=== PATIENT | female | born 1985 ===

== ENCOUNTER → 2019-05-20 08:24 | Outpatient (CLI) | payer OTHER, SELFPAY ==
[2019-05-20 09:16] LABS: Hemoglobin A1C% w Est Avg Glu 5.6 % (4.0-6.0)
[2019-05-20 09:49] LABS: Alanine Aminotransferase 37 IU/L (9-52); Albumin 4.5 g/dL (3.5-5.0); Albumin Globulin Ratio 1.3 (1.0-2.8); Alkaline Phosphatase 68 U/L (38-126); Aspartate Aminotransferase 27 IU/L (14-36); BUN Creatinine Ratio 17.1 (6-22); Bilirubin Total 0.5 mg/dL (0.2-1.3); Blood Urea Nitrogen 12 mg/dL (7-17); Calcium 9.3 mg/dL (8.4-10.2); Carbon Dioxide 29 mmol/L (22-32); Chloride 101 mmol/L (98-107); Cholesterol 173 mg/dL (140-199); Estimated Glomerular Filt Rate > 60.0 mL/min (>60); Globulin 3.4 g/dL (1.7-4.1); Glucose 115 mg/dL (70-100); HDL Cholesterol 25 mg/dL (40-60); HEMOLYSIS < 15 (0-50); LDL Cholesterol Calculated 114 mg/dL (<100); Potassium 4.2 mmol/L (3.4-5.1); Sodium 142 mmol/L (137-145); Total Protein 7.9 g/dL (6.3-8.2); Triglycerides 170 mg/dL (35-150)
[2019-05-20 10:07] LABS: Creatinine Urine Random 161.1 mg/dL
[2019-05-20 10:11] LABS: Microalbumi Creatinin Ratio Ur 14.2 ug/mg CR (<30); Microalbumin Urine Random 2.3 mg/dL (0-1.6)
[2019-05-20 10:13] LABS: Thyroid Stimulating Hormone 2.16 uIU/mL (0.47-4.68)
== END ==
PROVIDERS: PCP Physician Assistant; Visit Provider Physician Assistant
DX: E16.2 Hypoglycemia, unspecified (principal); R03.0 Elevated blood-pressure reading, without diagnosis of hypertension; Z83.3 Family history of diabetes mellitus; H53.9 Unspecified visual disturbance; I10 Essential (primary) hypertension
CPT/HCPCS: 36415; 80053; 80061; 82043; 82570; 83036; 84443

== ENCOUNTER → 2019-07-17 16:06 | Outpatient (CLI) | payer OTHER, SELFPAY ==
--- NOTE | 2019-07-17 16:08 | DI.US.S_ITS ---
PROCEDURE: US ABDOMEN LIMITED INDICATIONS: RUQ PAIN, R/O GALLSTONES TECHNIQUE: Real-time focused scanning was performed of the abdomen, with image documentation. COMPARISON: None. FINDINGS: Liver is diffusely increased in echogenicity. No focal hepatic abnormalities identified. Normal hepatic size. No gallstones identified. Normal gallbladder wall. No pericholecystic fluid. Negative sonographic Quinteros sign. No biliary dilatation. Normal pancreas. IMPRESSION: 1. Increased hepatic echogenicity noted possibly related to hepatic steatosis but other sources of hepatocellular disease cannot be excluded. Recommend clinical correlation. 2. Limited study demonstrating no source of right upper quadrant pain. Dictated by: Rosalio CASTILLO Interpreted: Jessica Araujo MD on 07/17/2019 at 16:43 Approved by: Jessica Araujo M.D. on 07/17/2019 at 17:23
== END ==
PROVIDERS: PCP Physician Assistant; Visit Provider Surgery
DX: K80.20 Calculus of gallbladder without cholecystitis without obstruction (principal)
CPT/HCPCS: 76705

== ENCOUNTER 2019-08-03 18:24 | Emergency (ER) | payer OTHER, SELFPAY ==
[2019-08-03 18:36] VITALS: BP 141/91; PULSE 93; RESP 18; TEMP 37.6; O2SAT 98; BMI 56.0
--- NOTE | 2019-08-03 19:29 | ED_ITS ---
HPI - Abdominal Pain <MARK Camacho - Last Filed: 08/03/19 22:48> General Chief Complaint: Abdominal Pain Stated Complaint: thinks she has galstones,sharp pain, fever Time Seen by Provider: 08/03/19 19:03 Source: patient and family Mode of arrival: ambulatory Limitations: no limitations History of Present Illness HPI narrative: This is a 33-year-old female, nonsmoker, who presents with significant other with chief complain of gallstone pain for last 2 months. Patient reports her pain is on right upper quadrant below her breast and reports subjective fever and chills and worsening pain today and decided to come in to ED for an evaluation. She also reports nausea without vomiting. She has been having diarrhea for 1 week but denies blood in stool or melena. No aggravating or relieving factors on this pain per patient. However, the pain is worse during evenings. Patient also states has productive cough after an ill contact from her stay child. Patient had recent ultrasound on abdomen which was arranged by her primary care physician and it showed increased hepatic echogenicity related to hepatic steatosis without gallstones, nondilated biliary dilation, pericholecystic fluids and with normal pancreas. Patient reports she is currently being followed up by her primary care provider for right upper quadrant pain. Patient denies urinary symptoms such as urgency, frequency or dysuria. She has history of uterine ablation and bilateral fallopian tube removal with right oophorectomy. Related Data Home Medications Medication Instructions Recorded Confirmed Multivitamin Gummies See Rx Instructions .ROUTE .COMPLEX 05/05/19 07/31/19 albuterol sulfate 90 mcg/actuation 2 puff INHALATION ONCE PRN gram 05/05/19 07/31/19 aerosol inhaler docusate sodium 100 mg capsule 100 mg PO DAILY 05/05/19 07/31/19 ferrous sulfate 325 mg (65 mg 325 mg PO DAILY tab 05/05/19 07/31/19 iron) tablet Vitamin C Gummies See Rx Instructions .ROUTE .COMPLEX 05/27/19 07/31/19 Previous Rx's Medication Instructions Recorded acyclovir 400 mg tablet 400 mg PO TID PRN #90 tab 05/05/19 mometasone-formoterol HFA 100 2 puff INHALATION BID #13 gram 05/05/19 mcg-5 mcg/actuation aerosol inhaler triamterene 37.5 1 tab PO DAILY #30 tab 06/18/19 mg-hydrochlorothiazide 25 mg tablet valsartan 80 mg tablet 80 mg PO DAILY #30 tab 07/02/19 labetalol 100 mg tablet 100 mg PO BID #60 tab 07/30/19 Allergies Allergy/AdvReac Type Severity Reaction Status Date / Time Penicillins Allergy Severe Anaphylactic Verified 08/03/19 18:42 shock cephalexin [From Keflex] AdvReac Severe Severe rash Verified 08/03/19 18:42 Review of Systems <MARK Camacho - Last Filed: 08/03/19 22:48> Review of Systems Narrative: General: See HPI HEENT: Denies sinus pain, ear pain, sore throat, difficulty swallowing, dizziness. Respiratory: Denies dyspnea, cough, wheezing, hemoptysis, sputum. Cardiovascular: Denies chest pain, palpitations, orthopnea, edema. Gastrointestinal: See HPI : Denies dysuria, frequency, incontinence, hematuria, urinary retention. Musculoskeletal: Denies weakness, joint pain or bony pain. Skin: Denies rash, skin lesions, or other. Neurologic: Denies weakness, headache, numbness, change in speech, confusion, seizures, incoordination. Psychiatric: No concerning psychosocial issues. 12-point review of systems is negative except for those stated above. PFSH <MARK Camacho - Last Filed: 08/03/19 22:48> Medical History (Updated 08/03/19 @ 22:28 by MARK Camacho) Anemia (Chronic) Asthma (Chronic) Heavy menstrual period (Chronic ~2002) Herpes (Chronic ~2005) Hypertension (Chronic ~2004) Ovarian cyst (Chronic ~2006) Surgical History (Updated 08/03/19 @ 20:12 by MARK Camacho) Anesthesia (Resolved) History of prior ablation treatment (Resolved ~2015) History of removal of cyst (Resolved ~2007) History of surgery (Resolved ~2018) History of tonsillectomy (Resolved ~1991) Status post surgical removal of both fallopian tubes (Acute) [place] teeth removed (Resolved ~2001) Family History Father Stroke Mother History of heart disease Hypertension Grandmother Diabetes mellitus Social History marital status: household members: spouse occupational status: employed Smoking Status: Never smoker second hand exposure: No alcohol intake: never substance use type: does not use Family History Father Stroke Mother History of heart disease Hypertension Grandmother Diabetes mellitus Social History marital status: household members: spouse occupational status: employed Smoking Status: Never smoker second hand exposure: No alcohol intake: never substance use type: does not use Exam <MARK Camacho - Last Filed: 08/03/19 22:48> Narrative Exam Narrative: GEN: Alert, oriented x 3, well appearing and nourished, and in no acute distress. Head: Normal cephalic, atraumatic. No scalp or temporal tenderness, palpable mass or rash. EYES: Pupils are equal, round, and reactive to light and accommodation. E xtraocular muscles are intact bilaterally. There is no subconjunctival hemorrhage, exudate and sclera non-icteric. ENT: Bilateral auditory canals and tympanic membranes clear. Hearing grossly intact. Nose without bleeding, purulent discharge or deviation. Facial sinuses nontender to palpate. Mucous membrane moist, no mucosal lesion. Throat without erythema, tonsillar hypertrophy or exudate. Uvula in midline, airway patent. Neck: Trachea in midline. No JVD, non-tender without lymphadenopathy. No masses or thyroid megaly. Supple, non-tender and no meningeal signs. CARDIAC: Normal regular rate and rhythm without murmurs, gallops, or rubs. No chest wall tenderness. No peripheral edema, cyanosis or pallor. Capillary refill is less than 2 seconds. RESPIRATORY: Lungs are cleat to auscultate bilaterally. No cough, wheezes, rales, or rhonchi. No stridor, respiratory distress, increase work of breathing, or accessary muscle used. ABD: Tender to palpate in right upper quadrant and epigastric area with palpation. Abdomen soft and non-distended. No guarding or rebound tenderness to palpate. Bowel sounds are normal in all 4 quadrants. There is no palpable masses or organomegaly. EXT: Full painless ROM of all extremities with no loss of sensation, strength, effusion or edema. SKIN: Warm, dry, normal color for patient. No erythema, lesions or rash over visible areas. BACK: Nontender without deformity or crepitance. No flank tenderness. NEUROLOGICAL: Alert and oriented to place, time and person. Sensation and motor function intact bilaterally. No facial droops, dysphasia. PSYCHIATRIC: Good judgement and reason, without hallucinations, abnormal affect or abnormal behaviors during the examination. Initial Vital Signs Initial Vital Signs: Vital Signs Temperature 99.7 F H 08/03/19 18:36 Pulse Rate 93 H 08/03/19 18:36 Respiratory Rate 18 08/03/19 18:36 Blood Pressure 141/91 H 08/03/19 18:36 Pulse Oximetry 98 08/03/19 18:36 <Jose Mcfarland DO - Last Filed: 08/03/19 22:52> Initial Vital Signs Initial Vital Signs: Vital Signs Temperature 99.7 F H 08/03/19 18:36 Pulse Rate 93 H 08/03/19 18:36 Respiratory Rate 18 08/03/19 18:36 Blood Pressure 141/91 H 08/03/19 18:36 Pulse Oximetry 98 08/03/19 18:36 Scores <MARK Camacho - Last Filed: 08/03/19 22:48> GCS Maude coma scale eye opening: Spontaneous [place] coma scale verbal response: Orientated [place] coma scale motor response: Obey commands [place] coma scale total score: 15 Course <MARK Camacho - Last Filed: 08/03/19 22:48> Orders Ordered: ED Orders 08/03/19 19:41 CT abdomen pelvis w con Stat EKG-12 Lead Stat 08/03/19 19:42 XR chest 2V Stat 08/03/19 20:52 Complete Blood Count AUTO DIFF Stat Comprehensive Metabolic Panel Stat Lactate (Lactic Acid) Stat Lipase Stat Sodium Chloride (Normal Saline 0.9%) 1,000 mls @ 150 mls/hr IV CONT ELI Last Infusion: 08/03/19 22:35 Dose: 0 mls/hr Documented by: Admin: 08/03/19 21:13 Dose: 150 mls/hr Documented by: JORGE A Discontinued Medications Ketorolac Tromethamine (Toradol) 30 mg IV NOW ONE Stop: 08/03/19 21:58 Last Admin: 08/03/19 22:12 Dose: 30 mg Documented by: OLY Ondansetron HCl (Zofran Odt Prepack) 1 bottle MISC SEEINSTR ONE Stop: 08/03/19 22:29 Last Admin: 08/03/19 22:35 Dose: 1 bottle Documented by: LIZZY Vital Signs Vital signs: Vital Signs - 8 hr 08/03/19 18:36 08/03/19 21:05 08/03/19 22:28 Temperature 99.7 F H 98.4 F Pulse Rate 93 H 90 84 Respiratory Rate 18 18 Blood Pressure 141/91 H Blood Pressure [Left Arm] 126/78 Pulse Oximetry 98 98 98 08/03/19 22:45 Temperature 98.9 F Pulse Rate 79 Respiratory Rate 18 Blood Pressure Blood Pressure [Left Arm] Pulse Oximetry 97 <Jose Mcfarland DO - Last Filed: 08/03/19 22:52> Orders Ordered: ED Orders 08/03/19 19:41 CT abdomen pelvis w con Stat EKG-12 Lead Stat 08/03/19 19:42 XR chest 2V Stat 08/03/19 20:52 Complete Blood Count AUTO DIFF Stat Comprehensive Metabolic Panel Stat Lactate (Lactic Acid) Stat Lipase Stat Sodium Chloride (Normal Saline 0.9%) 1,000 mls @ 150 mls/hr IV CONT ELI Last Infusion: 08/03/19 22:35 Dose: 0 mls/hr Documented by: Admin: 08/03/19 21:13 Dose: 150 mls/hr Documented by: JORGE A Discontinued Medications Ketorolac Tromethamine (Toradol) 30 mg IV NOW ONE Stop: 08/03/19 21:58 Last Admin: 08/03/19 22:12 Dose: 30 mg Documented by: OLY Gordondansetron HCl (Zofran Odt Prepack) 1 bottle MISC SEEINSTR ONE Stop: 08/03/19 22:29 Last Admin: 08/03/19 22:35 Dose: 1 bottle Documented by: LIZZY Vital Signs Vital signs: Vital Signs - 8 hr 08/03/19 18:36 08/03/19 21:05 08/03/19 22:28 Temperature 99.7 F H 98.4 F Pulse Rate 93 H 90 84 Respiratory Rate 18 18 Blood Pressure 141/91 H Blood Pressure [Left Arm] 126/78 Pulse Oximetry 98 98 98 08/03/19 22:45 Temperature 98.9 F Pulse Rate 79 Respiratory Rate 18 Blood Pressure Blood Pressure [Left Arm] Pulse Oximetry 97 MDM - Abdominal Pain <Juan MARK Eugene - Last Filed: 08/03/19 22:48> Differential Diagnosis Differential diagnosis: Likely abdominal pain, pancreatitis and other (Cholecystitis, hepatitis, fatty liver disease) Medical Records Attestation: I reviewed the patient's medical records. Lab Data Attestation: I reviewed the patient's lab results. Result diagrams: 08/03/19 20:52 08/03/19 20:52 Labs: Lab Results 08/03/19 08/03/19 08/03/19 Range/Units 20:52 20:52 20:52 WBC 10.9 (4.5-11.0) X10^3/uL RBC 4.23 (4.0-5.2) X10^6/uL Hgb 11.6 L (12.0-16.0) g/dL Hct 34.6 L (36-46) % MCV 81.9 (80-100) fL MCH 27.4 (26-34) PG MCHC 33.4 (30-36) % RDW 16.5 H (11.6-14.8) % Plt Count 299 (150-400) X10^3/uL Neut % (Auto) 69.0 (50-75) % Lymph % (Auto) 21.1 L (25-40) % [place] % (Auto) 6.4 (3-14) % Eos % (Auto) 2.8 (2-4) % Baso % (Auto) 0.7 (0-2) % Neut # (Auto) 7500 H (6103-0519) /uL Lymph # (Auto) 2300 (2953-1334) /uL [place] # (Auto) 700 (0-900) /uL Eos # (Auto) 300 (0-450) /uL Baso # (Auto) 100 (0-100) /uL Sodium 137 (137-145) mmol/L Potassium 3.5 (3.4-5.1) mmol/L Chloride 98 (98-107) mmol/L Carbon Dioxide 29 (22-32) mmol/L BUN 14 (7-17) mg/dL Creatinine 0.70 (0.52-1.04) mg/dL Estimated GFR > 60.0 (>60) mL/min BUN/Creatinine Ratio 20.0 (6-22) Glucose 125 H (70-100) mg/dL Lactate 1.5 (0.7-2.1) mmol/L Calcium 9.6 (8.4-10.2) mg/dL Total Bilirubin 0.3 (0.2-1.3) mg/dL AST 32 (14-36) IU/L ALT 40 (9-52) IU/L Alkaline Phosphatase 80 (38-126) U/L Total Protein 7.9 (6.3-8.2) g/dL Albumin 4.5 (3.5-5.0) g/dL Globulin 3.4 (1.7-4.1) g/dL Albumin/Globulin Ratio 1.3 (1.0-2.8) Lipase 31 (23-300) U/L Point of care testing: Point of Care Testing Test Results Negative Urine Dip Bedside Urine Glucose Negative Bedside Urine Bilirubin - Negative Bedside Urine Ketone - Negative Urine Specific [place] 1.015 Bedside Urine Occult Blood - Negative Bedside Urine pH 6.0 Bedside Urine Protein - Negative Bedside Urine Urobilinogen - Negative Bedside Urine Nitrite - Negative Bedside Urine Leukocytes - Negative Esterase Imaging Data Chest x-ray: Radiologist's impression: [address] [address] XRay Report Signed Patient: Madeline Osorio EMR#: [id number] : 1985Acct:[id number] Age/Sex: 33 / FDate of Service: 08/03/19 Loc: ED Accession Number: [id number] Procedure: XR chest 2V Ordering Provider: Juan Eugene PROCEDURE: XR CHEST 2V INDICATIONS: c/o productive cough and fever TECHNIQUE: 2 views of the chest were acquired. COMPARISON: [facility], CT, CT ABDOMEN PELVIS W CON, 08/03/2019, 21:19. FINDINGS: Surgical changes and devices: None. Lungs and pleura: Lungs are clear. No pleural effusions or pneumothorax. Mediastinum: Mediastinal contours are normal. Heart size is normal. Bones and chest wall: No suspicious bony abnormalities. Soft tissues appear unremarkable. IMPRESSION: No infiltrates are seen. Dictated by: Gurjit Ware M.D. on 08/03/2019 at 21:32 Approved by: Gurjit Ware M.D. on 08/03/2019 at 21:33 CT scan - abdomen: Radiologist's impression: [address] [address] [address] Scan Report Signed Patient: Madeline Osorio EMR#: [id number] : 1985Acct:[id number] Age/Sex: 33 / FDate of Service: 08/03/19 Loc: ED Accession Number: [id number] Procedure: CT abdomen pelvis w con Ordering Provider: Juan Eugene PROCEDURE: CT ABDOMEN PELVIS W CON INDICATIONS: RUQ and epigastric pain TECHNIQUE: After the administration of intravenous contrast, 5 mm thick sections acquired from the diaphragm to the symphysis. 5 mm coronal and sagittal reformats were acquired. For radiation dose reduction, the following was used: automated exposure control, adjustment of mA and/or kV according to patient size. COMPARISON: [facility], CR, XR CHEST 2V, 08/03/2019, 21:22. [facility], US, US ABDOMEN LIMITED, 07/17/2019, 16:27. FINDINGS: Image quality: Excellent. ABDOMEN: Lung bases: Lung bases are clear. Heart size is normal. Solid organs: The liver is enlarged. Diffuse fatty infiltration is seen. Gallbladder is collapsed at the time of this study. Biliary system is non dilated. Pancreas enhances normally. Spleen is normal in size and enhancement. Incidental note is made of an accessory spleen inferior to the primary spleen. No adrenal nodules. Kidneys demonstrate normal size and enhancement, without hydronephrosis. Peritoneum and bowel: Bowel loops demonstrate normal wall thickness and caliber. No free fluid or air. A moderate amount of stool is seen within the colon. Nodes and vessels: No retroperitoneal or mesenteric adenopathy by size criteria. Aorta and inferior vena cava are normal in size. Miscellaneous: No ventral hernias. PELVIS: Genitourinary: Bladder wall thickness is normal. Cystic changes seen of the left ovary, which is considered to be within physiologic limits. Miscellaneous: No inguinal hernias or adenopathy. Bones: No suspicious bony lesions. No vertebral body compression fractures. Premature focal L5-S1 degenerative changes can be seen. IMPRESSION: There is a moderate amount of stool seen within the colon. Please correlate with constipation. The gallbladder is collapsed. Incidental note is made of: Enlarged, fatty liver. Accessory spleen Premature L5-S1 degenerative change Dictated by: Gurjit Ware M.D. on 08/03/2019 at 21:34 Approved by: Gurjit Ware M.D. on 08/03/2019 at 21:39 ECG Data Attestation: I personally reviewed and interpreted this ECG as follows: Prior ECG tracings: not available for review Interpretation: Sinus rhythm rate at 86. Normal [place]. Nonspecific T-wave abnormalty. No ST elevation. MDM Narrative Medical decision making narrative: This patient is 33-year-old female coming in with right upper quadrant pain and epigastric pain with subjective fever and chills with nausea. Patient has been having upper right quadrant pain for last 2 months but today she felt pain is more severe and noticed fever. She had ultrasound test done in the past and was told there was some abnormalty in her liver or possibly gallbladder and when she Googled her symptoms with fever, she and her got concerned and came in to ED for an evaluation. Patient also states she was exposed to her daughter with URI symptoms and has productive coughs. Patient's EKG shows normal sinus rhythm with a nonspecific T-waves. Abdomen pelvis CT shows enlarged liver with diffuse fatty infiltration and constipation. Otherwise, unremarkable CT scan results. Patient has mild anemia without leukocytosis. She is known to have anemia and currently is taking iron pill. Electrolytes were normal with with normal LFTs, lipase, creatinine. Lactate was 1.5. Patient was medicated with Zofran, IV fluid and toradol for her symptoms and reports pain and nausea were improving. The patient and spouse informed that this could be from gastritis, ulcer, GERD and avoid trigger foods and to stay up for 2 hours after eating. Urine test was not obtained at this time due to the abdominal pain was localized in upper right quadrant and epigastric area. Patient was discharged to home with Zofran prepack and was advised to follow up with her primary care physician and test results were shared with the patient and spouse at the bedside. Return precautions were discussed and patient and spouse agree with treatment plan. <Jose Mcfarland DO - Last Filed: 08/03/19 22:52> Lab Data Labs: Lab Results 08/03/19 08/03/19 08/03/19 Range/Units 20:52 20:52 20:52 WBC 10.9 (4.5-11.0) X10^3/uL RBC 4.23 (4.0-5.2) X10^6/uL Hgb 11.6 L (12.0-16.0) g/dL Hct 34.6 L (36-46) % MCV 81.9 (80-100) fL MCH 27.4 (26-34) PG MCHC 33.4 (30-36) % RDW 16.5 H (11.6-14.8) % Plt Count 299 (150-400) X10^3/uL Neut % (Auto) 69.0 (50-75) % Lymph % (Auto) 21.1 L (25-40) % [place] % (Auto) 6.4 (3-14) % Eos % (Auto) 2.8 (2-4) % Baso % (Auto) 0.7 (0-2) % Neut # (Auto) 7500 H (5789-8160) /uL Lymph # (Auto) 2300 (2425-4345) /uL [place] # (Auto) 700 (0-900) /uL Eos # (Auto) 300 (0-450) /uL Baso # (Auto) 100 (0-100) /uL Sodium 137 (137-145) mmol/L Potassium 3.5 (3.4-5.1) mmol/L Chloride 98 (98-107) mmol/L Carbon Dioxide 29 (22-32) mmol/L BUN 14 (7-17) mg/dL Creatinine 0.70 (0.52-1.04) mg/dL Estimated GFR > 60.0 (>60) mL/min BUN/Creatinine Ratio 20.0 (6-22) Glucose 125 H (70-100) mg/dL Lactate 1.5 (0.7-2.1) mmol/L Calcium 9.6 (8.4-10.2) mg/dL Total Bilirubin 0.3 (0.2-1.3) mg/dL AST 32 (14-36) IU/L ALT 40 (9-52) IU/L Alkaline Phosphatase 80 (38-126) U/L Total Protein 7.9 (6.3-8.2) g/dL Albumin 4.5 (3.5-5.0) g/dL Globulin 3.4 (1.7-4.1) g/dL Albumin/Globulin Ratio 1.3 (1.0-2.8) Lipase 31 (23-300) U/L Point of care testing: Point of Care Testing Test Results Negative Urine Dip Bedside Urine Glucose Negative Bedside Urine Bilirubin - Negative Bedside Urine Ketone - Negative Urine Specific [place] 1.015 Bedside Urine Occult Blood - Negative Bedside Urine pH 6.0 Bedside Urine Protein - Negative Bedside Urine Urobilinogen - Negative Bedside Urine Nitrite - Negative Bedside Urine Leukocytes - Negative Esterase Discharge Plan Departure Patient Disposition: Home Clinical Impression: Nausea Abdominal pain Qualifiers: Abdominal location: upper abdomen, unspecified Qualified Code(s): R10.10 - Upper abdominal pain, unspecified Instructions: DI for Abdominal Pain-Adult, DI for Nausea -- Adult Activity Restrictions/Additional Instructions: You have been diagnosed with upper abdominal pain with nausea. The CT scan on abdomen pelvis showed moderate amount of stool in colon with no obvious gallstones or infection; Liver appears to be enlarged with diffused fatty infiltrations. Chest x-ray was normal without pneumonia. EKG and blood tests were unremarkable including a lactate indications for infection. The red blood cell counts were very mildly decreased which means you have anemia. Please con tinue with her current medications including iron pills. You are going home with Maribel elaine from ED for you to use as needed for nausea. You were treated with IV fluid and Toradol for pain while in ED. Increase fiber in her diet and adequate hydration to help with bowel movements. What to do: *Take your medications as directed. *Follow up with your primary care provider in 2-3 days, call for an appointment. Let them know you were seen in the ED and that we asked you to be seen in [facility]. *Return to ED if you have any new, worsening, or concerning symptoms, such as [chest pain, breathing difficulty, unable to tolerate fluids, fever, urinary symptoms and any acute concerns]. Prescriptions: No Action labetalol 100 mg tablet 100 mg PO BID Qty: 60 RF: 1 triamterene-hydrochlorothiazid 37.5-25 mg tablet 1 tab PO DAILY Qty: 30 RF: 3 valsartan 80 mg tablet 80 mg PO DAILY Qty: 30 RF: 1 ferrous sulfate 325 mg (65 mg iron) tablet 325 mg PO DAILY RF: 0 docusate sodium [Dulcolax Stool Softener (dss)] 100 mg capsule 100 mg PO DAILY RF: 0 albuterol sulfate 90 mcg/actuation HFA aerosol inhaler 2 puff INHALATION ONCE PRNRF: 0 Multivitamin Gummies See Rx Instructions .ROUTE .COMPLEX RF: 0 acyclovir 400 mg tablet 400 mg PO TID PRN (Reason: herpes outbreak) Qty: 90 RF: 3 Dulera 100-5 mcg/actuation HFA aerosol inhaler 2 puff INHALATION BID Qty: 13 RF: 6 Vitamin C Gummies See Rx Instructions .ROUTE .COMPLEX RF: 0 Referrals: Ronda Kruger PA-C [Primary Care Provider] - <Jose Mcfarland DO - Last Filed: 08/03/19 22:52> Sign Out Provider Sign Out Attestation: I was available for consultation during this patient's emergency department encounter
--- NOTE | 2019-08-03 19:41 | DI.CT.S_ITS ---
PROCEDURE: CT ABDOMEN PELVIS W CON INDICATIONS: RUQ and epigastric pain TECHNIQUE: After the administration of intravenous contrast, 5 mm thick sections acquired from the diaphragm to the symphysis. 5 mm coronal and sagittal reformats were acquired. For radiation dose reduction, the following was used: automated exposure control, adjustment of mA and/or kV according to patient size. COMPARISON: [facility], CR, XR CHEST 2V, 08/03/2019, 21:22. [facility], US, US ABDOMEN LIMITED, 07/17/2019, 16:27. FINDINGS: Image quality: Excellent. ABDOMEN: Lung bases: Lung bases are clear. Heart size is normal. Solid organs: The liver is enlarged. Diffuse fatty infiltration is seen. Gallbladder is collapsed at the time of this study. Biliary system is non dilated. Pancreas enhances normally. Spleen is normal in size and enhancement. Incidental note is made of an accessory spleen inferior to the primary spleen. No adrenal nodules. Kidneys demonstrate normal size and enhancement, without hydronephrosis. Peritoneum and bowel: Bowel loops demonstrate normal wall thickness and caliber. No free fluid or air. A moderate amount of stool is seen within the colon. Nodes and vessels: No retroperitoneal or mesenteric adenopathy by size criteria. Aorta and inferior vena cava are normal in size. Miscellaneous: No ventral hernias. PELVIS: Genitourinary: Bladder wall thickness is normal. Cystic changes seen of the left ovary, which is considered to be within physiologic limits. Miscellaneous: No inguinal hernias or adenopathy. Bones: No suspicious bony lesions. No vertebral body compression fractures. Premature focal L5-S1 degenerative changes can be seen. IMPRESSION: There is a moderate amount of stool seen within the colon. Please correlate with constipation. The gallbladder is collapsed. Incidental note is made of: Enlarged, fatty liver. Accessory spleen Premature L5-S1 degenerative change Dictated by: Gurjit Ware M.D. on 08/03/2019 at 21:34 Approved by: Gurjit Ware M.D. on 08/03/2019 at 21:39
--- NOTE | 2019-08-03 19:42 | DI.RAD.S_ITS ---
PROCEDURE: XR CHEST 2V INDICATIONS: c/o productive cough and fever TECHNIQUE: 2 views of the chest were acquired. COMPARISON: [facility], CT, CT ABDOMEN PELVIS W CON, 08/03/2019, 21:19. FINDINGS: Surgical changes and devices: None. Lungs and pleura: Lungs are clear. No pleural effusions or pneumothorax. Mediastinum: Mediastinal contours are normal. Heart size is normal. Bones and chest wall: No suspicious bony abnormalities. Soft tissues appear unremarkable. IMPRESSION: No infiltrates are seen. Dictated by: Gurjit Ware M.D. on 08/03/2019 at 21:32 Approved by: Gurjit Ware M.D. on 08/03/2019 at 21:33
[2019-08-03 21:05] VITALS: BP 126/78; PULSE 90; RESP 18; O2SAT 98
[2019-08-03] MEDS: SODIUM CHLORIDE 0.9% 1,000 ML 150 ML IV (21:13)
[2019-08-03 21:26] LABS: Add Manual Diff / Slide Review NO; Basophils Absolute Auto 100 /uL (0-100); Basophils Percent Auto 0.7 % (0-2); Eosinophils Absolute Auto 300 /uL (0-450); Eosinophils Percent Auto 2.8 % (2-4); Hematocrit 34.6 % (36-46); Hemoglobin 11.6 g/dL (12.0-16.0); Lymphocytes Absolute Auto 2300 /uL (1100-4500); Lymphocytes Percent Auto 21.1 % (25-40); Mean Corpuscular HGB Conc 33.4 % (30-36); Mean Corpuscular Hemoglobin 27.4 PG (26-34); Mean Corpuscular Volume 81.9 fL (80-100); Monocytes Absolute Auto 700 /uL (0-900); Monocytes Percent Auto 6.4 % (3-14); Neutrophils Absolute Auto 7500 /uL (1500-7000); Platelet Count 299 X10^3/uL (150-400); Red Blood Cell Count 4.23 X10^6/uL (4.0-5.2); Red Cell Distribution Width 16.5 % (11.6-14.8); White Blood Cell Count 10.9 X10^3/uL (4.5-11.0)
[2019-08-03 21:28] LABS: Lactate (Lactic Acid) 1.5 mmol/L (0.7-2.1)
[2019-08-03 21:29] LABS: Alanine Aminotransferase 40 IU/L (9-52); Albumin 4.5 g/dL (3.5-5.0); Albumin Globulin Ratio 1.3 (1.0-2.8); Alkaline Phosphatase 80 U/L (38-126); Aspartate Aminotransferase 32 IU/L (14-36); Bilirubin Total 0.3 mg/dL (0.2-1.3); Blood Urea Nitrogen 14 mg/dL (7-17); Calcium 9.6 mg/dL (8.4-10.2); Carbon Dioxide 29 mmol/L (22-32); Chloride 98 mmol/L (98-107); Estimated Glomerular Filt Rate > 60.0 mL/min (>60); Globulin 3.4 g/dL (1.7-4.1); Glucose 125 mg/dL (70-100); HEMOLYSIS < 15 (0-50); Lipase 31 U/L (23-300); Potassium 3.5 mmol/L (3.4-5.1); Sodium 137 mmol/L (137-145); Total Protein 7.9 g/dL (6.3-8.2)
[2019-08-03] MEDS: KETOROLAC 60 MG/2 ML VIAL 30 MG IV (22:12)
[2019-08-03 22:28] VITALS: PULSE 84; TEMP 36.9; O2SAT 98
[2019-08-03] MEDS: ONDANSETRON 4 MG ODT PREPACK 1 BOTTLE MISC (22:35)
[2019-08-03 22:45] VITALS: PULSE 79; RESP 18; TEMP 37.2; O2SAT 97
== END 2019-08-03 22:45 | disposition home or self-care (01) ==
PROVIDERS: Emergency Provider Nurse Practitioner Family; PCP Physician Assistant
DX: R11.0 Nausea (principal); R10.10 Upper abdominal pain, unspecified
CPT/HCPCS: 29705; 36591; 71046; 74177; 80053; 81003; 81025; 83605; 83690; 85025; 93005; 96361; 96374; 99283; 99285; J1885; Q9967

== ENCOUNTER → 2019-12-19 14:59 | Outpatient (CLI) | payer OTHER, SELFPAY | PROVIDERS: PCP Physician Assistant; Visit Provider Nurse Practitioner | DX: L02.91 Cutaneous abscess, unspecified (principal) | CPT/HCPCS: 87070; 87075; 87077; 87205 ==

== ENCOUNTER → 2020-07-23 13:59 | Outpatient (CLI) | payer OTHER, MEDICAID, SELFPAY ==
[2020-07-23 15:05] LABS: BUN Creatinine Ratio 18.6 (6-22); Blood Urea Nitrogen 13 mg/dL (7-17); Calcium 10.2 mg/dL (8.4-10.2); Carbon Dioxide 28 mmol/L (22-32); Chloride 99 mmol/L (98-107); Estimated Glomerular Filt Rate > 60.0 mL/min (>60); Glucose 206 mg/dL (70-100); HEMOLYSIS < 15 (0-50); Potassium 4.3 mmol/L (3.4-5.1); Sodium 137 mmol/L (137-145)
== END ==
PROVIDERS: PCP Internal Medicine; Referring Provider Internal Medicine; Visit Provider Internal Medicine
DX: I10 Essential (primary) hypertension (principal)
CPT/HCPCS: 36415; 80048

== ENCOUNTER → 2020-08-10 11:04 | Outpatient (CLI) | payer OTHER, MEDICAID, SELFPAY ==
[2020-08-10 12:29] LABS: Hemoglobin A1C% w Est Avg Glu 8.1 % (4.0-6.0)
== END ==
PROVIDERS: PCP Internal Medicine; Referring Provider Internal Medicine; Visit Provider Internal Medicine
DX: R73.9 Hyperglycemia, unspecified (principal)
CPT/HCPCS: 36415; 83036

== ENCOUNTER → 2020-09-27 13:57 | Outpatient (CLI) | payer OTHER, MEDICAID, SELFPAY ==
--- NOTE | 2020-09-27 15:51 | DIET.PN ---
Diabetes Intake: Initial Assessment Assess: Mrs. Osorio is a 34 YOF referred for type two diabetes. Pt reports long standing hx of pre diabetes w/ episodes of hypoglycemia and htn. She endorses significant weight gain since Covid 19 and managing home life and school with two young children. Since diagnosis a month ago, she has been cutting down on carbs and doing more home cooking. She swims a few times a week for exercise. She does not currently have a glucometer. Labs: Per pt report: A1c: 8.1 Meds: metformin 500mg BID Diet: per 24 hr recall: B: eggs, w/ baked beans, lopez or sausage L: chicken salad or sandwich D: chicken tacos; meatloaf w/ veggie, potatoes Sn: popcorn, cheese stick, yogurt Wt: 394lb Ht: 69in BMI: 58.2 DX: Altered nutrition related laboratory values related to impaired glucose metabolism, lack of previous exposure to nutrition information as evidenced by pt report, diagnosis of diabetes, previous diet high in refined carbohydrates. Intervention: 1. Completed intake assessment. Discussed barriers to care. 2. Discussed pathophysiology of diabetes. Reviewed A1c and its correlation to blood glucose numbers. Discussed recommended BG ranges. 3. Discussed importance of self-monitoring, how often, and when to check. 4. Reviewed hyper/hypoglycemia and treatment. 5. Reviewed safe disposal of equipment (strip/lancets/insulin needles). 6. Created SMART goals for pt self-care and success. 7. Discussed program curriculum outline and class needs based on individual goals. SMART Goals: 1. Patient would like to get back down to 300lbs through improved dietary habits, cutting down on carbohydrates and swimming for 30 minutes on the days her kids have school. Monitor/Evaluate: Basic Nutrition class scheduled for Nov 02 @2pm.
== END ==
PROVIDERS: PCP Internal Medicine; Referring Provider Internal Medicine; Visit Provider Internal Medicine
DX: E11.9 Type 2 diabetes mellitus without complications (principal); E66.9 Obesity, unspecified; I10 Essential (primary) hypertension; Z79.84 Long term (current) use of oral hypoglycemic drugs; Z71.3 Dietary counseling and surveillance; Z68.43 Body mass index [BMI] 50.0-59.9, adult
CPT/HCPCS: G0108

== ENCOUNTER → 2020-10-06 12:41 | Outpatient (CLI) | payer OTHER, MEDICAID, SELFPAY ==
[2020-10-06 14:35] LABS: Hemoglobin A1C% w Est Avg Glu 7.5 % (4.0-6.0)
[2020-10-06 14:42] LABS: BUN Creatinine Ratio 21.1 (6-22); Blood Urea Nitrogen 16 mg/dL (7-17); Calcium 9.8 mg/dL (8.4-10.2); Carbon Dioxide 27 mmol/L (22-32); Chloride 101 mmol/L (98-107); Estimated Glomerular Filt Rate > 60.0 mL/min (>60); Glucose 142 mg/dL (70-100); HEMOLYSIS < 15 (0-50); Potassium 3.9 mmol/L (3.4-5.1); Sodium 138 mmol/L (137-145)
== END ==
PROVIDERS: PCP Internal Medicine; Referring Provider Internal Medicine; Visit Provider Internal Medicine
DX: E11.65 Type 2 diabetes mellitus with hyperglycemia (principal)
CPT/HCPCS: 36415; 80048; 83036

== ENCOUNTER → 2020-10-19 11:42 | Outpatient (CLI) | payer OTHER, MEDICAID, SELFPAY ==
[2020-10-19 12:46] LABS: Appearance Urine UA SL CLOUDY; Bilirubin Urine UA NEGATIVE (NEGATIVE); Color Urine UA ORANGE; Glucose Urine UA TRACE g/dL (Negative); Ketones Urine UA NEGATIVE (NEGATIVE); Leukocyte Esterase Urine UA 2+ (NEGATIVE); Nitrite Urine UA POSITIVE (Negative); Occult Blood Urine UA 3+ (Negative); Protein Urine UA 2+ (Negative)
[2020-10-19 12:56] LABS: RBC Urine 30-100/HPF (0-5/HPF)
[2020-10-19 12:57] LABS: Bacteria Urine Many (>30); Culture Indicated Urine Specimen Cultured; Squamous Epithelial Cell Urine 1-5 /HPF (0-5/HPF); WBC Urine 30-100/HPF (0-5/HPF)
== END ==
PROVIDERS: PCP Internal Medicine; Referring Provider Internal Medicine; Visit Provider Internal Medicine
DX: R31.9 Hematuria, unspecified (principal); R35.0 Frequency of micturition; R39.89 Other symptoms and signs involving the genitourinary system
CPT/HCPCS: 81001; 87077; 87086; 87186

== ENCOUNTER → 2021-01-07 11:44 | Outpatient (CLI) | payer OTHER, MEDICAID, SELFPAY ==
[2021-01-07 13:09] LABS: BUN Creatinine Ratio 23.9 (6-22); Blood Urea Nitrogen 16 mg/dL (7-17); Calcium 9.4 mg/dL (8.4-10.2); Carbon Dioxide 27 mmol/L (22-32); Chloride 101 mmol/L (98-107); Estimated Glomerular Filt Rate > 60.0 mL/min (>60); Glucose 184 mg/dL (70-100); HEMOLYSIS 26 (0-50); Potassium 4.1 mmol/L (3.4-5.1); Sodium 137 mmol/L (137-145)
[2021-01-07 13:24] LABS: Hemoglobin A1C% w Est Avg Glu 7.1 % (4.0-6.0)
== END ==
PROVIDERS: PCP Internal Medicine; Referring Provider Internal Medicine; Visit Provider Internal Medicine
DX: E11.65 Type 2 diabetes mellitus with hyperglycemia (principal)
CPT/HCPCS: 36415; 80048; 83036

== ENCOUNTER → 2021-04-08 11:33 | Outpatient (CLI) | payer OTHER, MEDICAID, SELFPAY ==
[2021-04-08 12:45] LABS: Hemoglobin A1C% w Est Avg Glu 7.9 % (4.0-6.0)
[2021-04-08 13:24] LABS: BUN Creatinine Ratio 21.6 (6-22); Blood Urea Nitrogen 16 mg/dL (7-17); Calcium 10.8 mg/dL (8.4-10.2); Carbon Dioxide 24 mmol/L (22-32); Chloride 101 mmol/L (98-107); Estimated Glomerular Filt Rate > 60.0 mL/min (>60); Glucose 163 mg/dL (70-100); HEMOLYSIS < 15 (0-50); Potassium 4.4 mmol/L (3.4-5.1); Sodium 139 mmol/L (137-145)
== END ==
PROVIDERS: PCP Internal Medicine; Referring Provider Internal Medicine; Visit Provider Internal Medicine
DX: E11.65 Type 2 diabetes mellitus with hyperglycemia (principal); I10 Essential (primary) hypertension
CPT/HCPCS: 36415; 80048; 83036

== ENCOUNTER → 2021-07-07 12:03 | Outpatient (CLI) | payer OTHER, MEDICAID, SELFPAY ==
[2021-07-07 13:44] LABS: Hemoglobin A1C% w Est Avg Glu 8.2 % (4.0-6.0)
[2021-07-07 13:57] LABS: BUN Creatinine Ratio 19.7 (6-22); Blood Urea Nitrogen 14 mg/dL (7-17); Calcium 9.9 mg/dL (8.4-10.2); Carbon Dioxide 23 mmol/L (22-32); Chloride 100 mmol/L (98-107); Estimated Glomerular Filt Rate > 60.0 mL/min (>60); Glucose 249 mg/dL (70-100); HEMOLYSIS < 15 (0-50); Potassium 4.5 mmol/L (3.4-5.1); Sodium 137 mmol/L (137-145)
== END ==
PROVIDERS: PCP Internal Medicine; Referring Provider Internal Medicine; Visit Provider Internal Medicine
DX: E11.65 Type 2 diabetes mellitus with hyperglycemia (principal); I10 Essential (primary) hypertension
CPT/HCPCS: 36415; 80048; 83036

== ENCOUNTER → 2021-09-05 11:06 | Outpatient (CLI) | payer OTHER, MEDICAID, SELFPAY ==
[2021-09-05 11:58] LABS: Hemoglobin A1C% w Est Avg Glu 7.4 % (4.0-6.0)
[2021-09-05 12:11] LABS: BUN Creatinine Ratio 24.6 (6-22); Blood Urea Nitrogen 16 mg/dL (7-17); Calcium 10.2 mg/dL (8.4-10.2); Carbon Dioxide 26 mmol/L (22-32); Chloride 102 mmol/L (98-107); Estimated Glomerular Filt Rate > 60.0 mL/min (>60); Glucose 135 mg/dL (70-100); HEMOLYSIS < 15 (0-50); Potassium 4.2 mmol/L (3.4-5.1); Sodium 141 mmol/L (137-145)
== END ==
PROVIDERS: PCP Internal Medicine; Referring Provider Internal Medicine; Visit Provider Internal Medicine
DX: E11.65 Type 2 diabetes mellitus with hyperglycemia (principal); E66.01 Morbid (severe) obesity due to excess calories; Z68.43 Body mass index [BMI] 50.0-59.9, adult
CPT/HCPCS: 36415; 80048; 83036

== ENCOUNTER → 2021-12-06 10:33 | Outpatient (CLI) | payer OTHER, MEDICAID, SELFPAY ==
[2021-12-06 12:04] LABS: BUN Creatinine Ratio 23.6 (6-22); Blood Urea Nitrogen 17 mg/dL (7-17); Calcium 10.3 mg/dL (8.4-10.2); Carbon Dioxide 27 mmol/L (22-32); Chloride 101 mmol/L (98-107); Estimated Glomerular Filt Rate > 60.0 mL/min (>60); Glucose 128 mg/dL (70-100); HEMOLYSIS < 15 (0-50); Sodium 139 mmol/L (137-145)
[2021-12-06 12:10] LABS: Hemoglobin A1C% w Est Avg Glu 6.7 % (4.0-6.0)
== END ==
PROVIDERS: PCP Internal Medicine; Referring Provider Internal Medicine; Visit Provider Internal Medicine
DX: E11.65 Type 2 diabetes mellitus with hyperglycemia (principal); I10 Essential (primary) hypertension
CPT/HCPCS: 36415; 80048; 83036

== ENCOUNTER → 2022-06-12 12:12 | Outpatient (CLI) | payer OTHER, MEDICAID, SELFPAY ==
[2022-06-12 13:11] LABS: Hemoglobin A1C% w Est Avg Glu 6.4 % (4.0-6.0)
[2022-06-12 13:26] LABS: BUN Creatinine Ratio 21.1 (6-22); Blood Urea Nitrogen 15 mg/dL (7-17); Calcium 9.3 mg/dL (8.4-10.2); Carbon Dioxide 27 mmol/L (22-32); Chloride 100 mmol/L (98-107); Estimated Glomerular Filt Rate > 60 mL/min (>60); Glucose 162 mg/dL (70-100); HEMOLYSIS < 15 (0-50); Potassium 4.1 mmol/L (3.4-5.1); Sodium 138 mmol/L (137-145)
== END ==
PROVIDERS: PCP Internal Medicine; Referring Provider Internal Medicine; Visit Provider Internal Medicine
DX: E11.65 Type 2 diabetes mellitus with hyperglycemia (principal); I10 Essential (primary) hypertension
CPT/HCPCS: 36415; 80048; 83036

== ENCOUNTER 2022-08-29 10:26 | Emergency (ER) | payer OTHER, MEDICAID, SELFPAY ==
[2022-08-29] VITALS (7 sets, daily range): BP systolic 151–193; BP diastolic 78–110; PULSE 69–82; RESP 16–29; TEMP 36.9; O2SAT 93–100; BMI 52.4
[2022-08-29] MEDS: KETOROLAC 30 MG/ML VIAL IV (11:03)
[2022-08-29] MEDS: ONDANSETRON 4 MG/2 ML INJ IV (11:04)
[2022-08-29 11:34] LABS: Add Manual Diff / Slide Review NO; Basophils Absolute Auto 200 /uL (0-100); Basophils Percent Auto 0.9 % (0-2); Eosinophils Absolute Auto 200 /uL (0-450); Eosinophils Percent Auto 1.1 % (2-4); Hematocrit 40.6 % (36-46); Hemoglobin 13.3 g/dL (12.0-16.0); Lymphocytes Absolute Auto 1600 /uL (1100-4500); Lymphocytes Percent Auto 9.9 % (25-40); Mean Corpuscular HGB Conc 32.7 % (30-36); Mean Corpuscular Hemoglobin 25.3 PG (26-34); Mean Corpuscular Volume 77.2 fL (80-100); Monocytes Absolute Auto 600 /uL (0-900); Monocytes Percent Auto 3.4 % (3-14); Neutrophils Absolute Auto 13800 /uL (1500-7000); Neutrophils Percent Auto 84.7 % (50-75); Platelet Count 346 X10^3/uL (150-400); Red Blood Cell Count 5.26 X10^6/uL (4.0-5.2); White Blood Cell Count 16.3 X10^3/uL (4.5-11.0)
[2022-08-29 11:38] LABS: Alanine Aminotransferase 107 IU/L (<35); Albumin 4.9 g/dL (3.5-5.0); Albumin Globulin Ratio 1.2 (1.0-2.8); Alkaline Phosphatase 114 U/L (38-126); Aspartate Aminotransferase 60 IU/L (14-36); BUN Creatinine Ratio 20.2 (6-22); Bilirubin Total 0.6 mg/dL (0.2-1.3); Blood Urea Nitrogen 17 mg/dL (7-17); Calcium 10.1 mg/dL (8.4-10.2); Carbon Dioxide 23 mmol/L (22-32); Chloride 100 mmol/L (98-107); Estimated Glomerular Filt Rate > 60 mL/min (>60); Globulin 4.1 g/dL (1.7-4.1); Glucose 143 mg/dL (70-100); HEMOLYSIS < 15 (0-50); Lipase 32 U/L (23-300); Sodium 139 mmol/L (137-145)
--- NOTE | 2022-08-29 11:51 | ED_ITS ---
HPI - Abdominal Pain General Chief Complaint: Abdominal Pain Stated Complaint: Severe abd pain right side Time Seen by Provider: 08/29/22 10:48 Source: patient and family Mode of arrival: Wheelchair Limitations: no limitations History of Present Illness HPI narrative: This is a 36 year old female with history of hypertension, diabetes with sudden onset of right flank and abdominal pain at about 3:00 a.m. which patient states was severe. She denies fevers but was having nausea and vomiting after onset of pain. She is had some diarrhea today but no black or bloody stools. No dysuria, urgency or new frequency although she states she takes a diuretic so she does have some chronic but baseline frequency. She denies any vaginal bleeding or discharge. She is not currently on her menses. Patient states no p rior kidney stones. She has had ovarian cysts that have had surgical treatment she is had both fallopian tubes removed and 1 of her ovaries and uterine ablation. She states she is allergic to penicillin which causes anaphylaxis and throat swelling and Keflex causes a rash. No tobacco, denies regular alcohol, no illicit. Related Data Home Medications Medication Instructions Recorded Confirmed Multivitamin Gummies See Rx Instructions .Route .COMPLEX 05/05/19 08/22/22 albuterol sulfate 90 mcg/actuation 2 puff inhalation ONCE PRN 05/05/19 08/22/22 aerosol inhaler docusate sodium 100 mg capsule 100 mg PO DAILY 05/05/19 08/22/22 (Dulcolax Stool Softener (docusate)) ferrous sulfate 325 mg (65 mg 325 mg PO DAILY 05/05/19 08/22/22 iron) tablet Vitamin C Gummies See Rx Instructions .Route .COMPLEX 05/27/19 08/22/22 Previous Rx's Medication Instructions Recorded acyclovir 400 mg tablet 400 mg PO TID PRN herpes outbreak 05/14/20 #90 tabs furosemide 20 mg tablet 20 mg PO DAILY #90 tabs 11/10/21 potassium chloride 10 mEq 10 meq PO DAILY #90 caps 11/10/21 capsule,extended release mometasone-formoterol HFA 100 2 puff inhalation BID #13 grams 06/13/22 mcg-5 mcg/actuation aerosol inhaler (Dulera) metformin 1,000 mg tablet 1,000 mg PO BID #180 tabs 06/29/22 labetalol 100 mg tablet 200 mg PO BID #360 tabs 08/15/22 cyclobenzaprine 5 mg tablet 5 mg PO TID PRN muscle spasm #60 08/22/22 tabs meloxicam 7.5 mg tablet 7.5 mg PO BID PRN pain #20 tabs 08/29/22 oxycodone 5 mg tablet 5 mg PO Q6H PRN pain #14 tabs 08/29/22 tamsulosin 0.4 mg capsule (Flomax) 0.4 mg PO DAILY #7 caps 08/29/22 Allergies Allergy/AdvReac Type Severity Reaction Status Date / Time Penicillins Allergy Severe Anaphylactic Verified 08/22/22 11:50 shock cephalexin [From Keflex] AdvReac Severe Severe rash Verified 08/22/22 11:50 Review of Systems Review of Systems ROS Unobtainable: All systems reviewed & are unremarkable except as noted in HPI and below Patient History Medical History Anemia Diabetes type 2, controlled Essential (primary) hypertension Genital herpes Heavy menstrual period (~2002) Hepatic steatosis Herpes (~2005) Morbid obesity with BMI of 50.0-59.9, adult Obstructive sleep apnea Ovarian cyst (~2006) Uncontrolled type 2 diabetes mellitus Unspecified asthma Ventral hernia Surgical History Anesthesia History of endometrial ablation History of prior ablation treatment (~2015) History of removal of cyst (~2007) History of salpingo-oophorectomy History of surgery (~2018) History of tonsillectomy (~1991) Status post surgical removal of both fallopian tubes [place] teeth removed (~2001) Family History Father Stroke Mother History of heart disease Hypertension Grandmother Diabetes mellitus Social History marital status: household members: spouse occupational status: employed Smoking Status: Never smoker second hand exposure: No alcohol intake: never substance use type: does not use eating out: rarely or never Type(s) of exercise: swimming Smoking Status: Never smoker alcohol intake frequency: 0-2 drinks per day Substance Use Type: does not use Exam Narrative Exam Narrative: GENERAL: Alert and oriented x three, obese female in significant distress initially. Much more comfortable after Toradol. HEENT: Head normocephalic, atraumatic, EOMI, pupils reactive, face symmetric, moist mucous membranes NECK: Supple, full range of motion CARDIOVASCULAR: Regular rate and rhythm without murmurs, rubs or gallops. RESPIRATORY: Breath sounds equal bilaterally, no wheezes rales or rhonchi. ABDOMEN: Soft, mild right-sided tenderness. Normoactive bowel sounds all 4 quadrants. No guarding or rebound, rigidity, no mass : No CVA tenderness EXTREMITIES: Normal range of motion, no clubbing or edema. Neurovascularly intact NEUROLOGICAL: Cranial nerves II through XII grossly intact. Moving all extremities SKIN: Warm, dry, no petechiae, no rashes or lesions. Initial Vital Signs Initial Vital Signs: Vital Signs Temperature 98.5 F 08/29/22 10:37 Pulse Rate 82 08/29/22 10:37 Respiratory Rate 20 08/29/22 10:37 Blood Pressure 193/110 H 08/29/22 10:37 Pulse Oximetry 99 08/29/22 10:37 Oxygen Delivery Method 08/29/22 10:37 Course Orders Ordered: ED Orders 08/29/22 11:40 Urine Microscopic Stat 08/29/22 12:20 CT kidney ureter bladder (KUB) Stat Discontinued Medications Ketorolac Tromethamine (Ketorolac 30 Mg/Ml Vial) 30 mg IV NOW ONE Stop: 08/29/22 10:58 Last Admin: 08/29/22 11:03 Dose: 30 mg Documented By: EVELYN Morphine Sulfate (Morphine 4 Mg/Ml Inj) 4 mg IV NOW ONE Stop: 08/29/22 13:22 Last Admin: 08/29/22 13:27 Dose: 4 mg Documented By: EVELYN Ondansetron HCl (Ondansetron 4 Mg/2 Ml Inj) 4 mg IV NOW ONE Stop: 08/29/22 10:58 Last Admin: 08/29/22 11:04 Dose: 4 mg Documented By: EVELYN Consultations Consultation #1: Dr. Freeman, OBGYN patient has 2.3 cm cystic nodule with solid component. She asked for CA 125 added on can see patient in the office. Time: 14:09 Vital Signs Vital signs: Vital Signs - 8 hr 08/29/22 13:31 08/29/22 13:38 08/29/22 13:38 Pulse Rate 82 79 Respiratory Rate Blood Pressure 159/90 H Pulse Oximetry 98 97 08/29/22 14:00 08/29/22 14:00 Pulse Rate 81 Respiratory Rate 16 Blood Pressure 161/78 H Pulse Oximetry 96 MDM - Abdominal Pain Lab Data Result diagrams: 08/29/22 10:54 08/29/22 10:54 Labs: Lab Results 08/29/22 08/29/22 08/29/22 Range/Units 10:54 10:54 10:54 WBC 16.3 H (4.5-11.0) X10^3/uL RBC 5.26 H (4.0-5.2) X10^6/uL Hgb 13.3 (12.0-16.0) g/dL Hct 40.6 (36-46) % MCV 77.2 L (80-100) fL MCH 25.3 L (26-34) PG MCHC 32.7 (30-36) % RDW 16.0 H (11.6-14.8) % Plt Count 346 (150-400) X10^3/uL Neut % (Auto) 84.7 H (50-75) % Lymph % (Auto) 9.9 L (25-40) % [place] % (Auto) 3.4 (3-14) % Eos % (Auto) 1.1 L (2-4) % Baso % (Auto) 0.9 (0-2) % Neut # (Auto) 81561 H (2342-7168) /uL Lymph # (Auto) 1600 (8801-3363) /uL [place] # (Auto) 600 (0-900) /uL Eos # (Auto) 200 (0-450) /uL Baso # (Auto) 200 H (0-100) /uL Sodium 139 (137-145) mmol/L Potassium 4.0 (3.4-5.1) mmol/L Chloride 100 (98-107) mmol/L Carbon Dioxide 23 (22-32) mmol/L BUN 17 (7-17) mg/dL Creatinine 0.84 (0.52-1.04) mg/dL Estimated GFR > 60 (>60) mL/min BUN/Creatinine Ratio 20.2 (6-22) Glucose 143 H (70-100) mg/dL Calcium 10.1 (8.4-10.2) mg/dL Total Bilirubin 0.6 (0.2-1.3) mg/dL AST 60 H (14-36) IU/L ALT 107 H (<35) IU/L Alkaline Phosphatase 114 (38-126) U/L Total Protein 9.0 H (6.3-8.2) g/dL Albumin 4.9 (3.5-5.0) g/dL Globulin 4.1 (1.7-4.1) g/dL Albumin/Globulin Ratio 1.2 (1.0-2.8) Lipase 32 (23-300) U/L CA 125 Antigen 6.3 (0-35) U/mL Urine RBC (0-5/HPF) Urine WBC (0-5/HPF) Ur Squamous Epith Cells (0-5/HPF) Urine Bacteria (None) Ur Culture Indicated? 08/29/22 Range/Units 11:40 WBC (4.5-11.0) X10^3/uL RBC (4.0-5.2) X10^6/uL Hgb (12.0-16.0) g/dL Hct (36-46) % MCV (80-100) fL MCH (26-34) PG MCHC (30-36) % RDW (11.6-14.8) % Plt Count (150-400) X10^3/uL Neut % (Auto) (50-75) % Lymph % (Auto) (25-40) % [place] % (Auto) (3-14) % Eos % (Auto) (2-4) % Baso % (Auto) (0-2) % Neut # (Auto) (9535-0113) /uL Lymph # (Auto) (8900-6055) /uL [place] # (Auto) (0-900) /uL Eos # (Auto) (0-450) /uL Baso # (Auto) (0-100) /uL Sodium (137-145) mmol/L Potassium (3.4-5.1) mmol/L Chloride (98-107) mmol/L Carbon Dioxide (22-32) mmol/L BUN (7-17) mg/dL Creatinine (0.52-1.04) mg/dL Estimated GFR (>60) mL/min BUN/Creatinine Ratio (6-22) Glucose (70-100) mg/dL Calcium (8.4-10.2) mg/dL Total Bilirubin (0.2-1.3) mg/dL AST (14-36) IU/L ALT (<35) IU/L Alkaline Phosphatase (38-126) U/L Total Protein (6.3-8.2) g/dL Albumin (3.5-5.0) g/dL Globulin (1.7-4.1) g/dL Albumin/Globulin Ratio (1.0-2.8) Lipase (23-300) U/L CA 125 Antigen (0-35) U/mL Urine RBC 10-30/hpf H (0-5/HPF) Urine WBC None seen (0-5/HPF) Ur Squamous Epith Cells 0-1 /hpf (0-5/HPF) Urine Bacteria None seen (None) Ur Culture Indicated? Cult not indicated Point of care testing: Point of Care Testing Test Results Negative Urine Dip Bedside Urine Glucose Negative Bedside Urine Bilirubin - Negative Bedside Urine Ketone +/- 5 Urine Specific [place] 1.005 Bedside Urine Occult Blood +++ Bedside Urine pH 8.5 Bedside Urine Protein - Negative Bedside Urine Urobilinogen - Negative Bedside Urine Nitrite - Negative Bedside Urine Leukocytes - Negative Esterase ECG Data Attestation: I personally reviewed and interpreted this ECG as follows: Prior ECG tracings: available for review Interpretation: Sinus rhythm with sinus arrhythmia rate of 72 SC 150 QRS of 100 and QTC 468. No acute ST changes. Patient has prior 08/03/2019 with nonspecific change. MDM Narrative Medical decision making narrative: This is a 36-year-old female with sudden onset right flank and abdominal pain with nausea and vomiting and hematuria. Patient has a leukocytosis of 16, leftw arabella shift, normal renal function, electrolytes with very mild bump in LFTs. Urine shows blood, no leuks or nitrates. Micro shows blood no signs of infection. Patient is slightly tender in the right lower quadrant in comparison to the rest of her abdomen. CT KUB was obtained shows 3 kidney stones in the right ureter which are 3 mm or less. Also noted is a left ovarian cyst with solid component. This is concerning for neoplasm discussed with OBGYN who asked for CA 125 but states less likely based on size they are happy to see her in the office and over to get her in shortly. Discussed with patient her findings today both the cystic lesion that needs follow-up and she is aware of this. As well as her kidney stones. Discussed pain management, return precautions and need for follow-up with OBGYN no matter what as well as follow-up with urology if symptoms persisting in terms of pain. Discharge Plan Departure Patient Disposition: Home Clinical Impression: Kidney stone on right side Ovarian cyst Qualifiers: Laterality: left Qualified Code(s): N83.202 - Unspecified ovarian cyst, left side Instructions: DI for Kidney Stones Activity Restrictions/Additional Instructions: Your imaging today shows multiple kidney stones on the right causing your pain. Referral is included below for Urology. It is also noted that there is a left ovarian cyst with a solid nodule and this needs follow-up ultrasound and you need to be seen with OBGYN for further treatment. Referral for boiler washer included. I spoke with Dr. Freeman for OBGYN she asked that we add a CA 125 onto her blood work and will see you in the office. Please call today or tomorrow for an appointment. Take Flomax once daily until gone You may take meloxicam 1 tablet every 12 hours as needed for pain. You can take Tylenol up to a 1000 mg every 6 hours as needed for pain. Take oxycodone 1-2 tablets every 4-6 hours as needed. This medication can make you sleepy do not drive, perform hazardous activities or make any major decisions while taking it. This medication will make you constipated please take a stool softener once to twice daily until stools are soft and regular. Prescriptions sent to [facility] in [place]. Please return for fevers, worsening or new abdominal, back or flank pain, persistent vomiting, inability to urinate or other new or concerning symptoms Prescriptions: New oxycodone 5 mg tablet 5 mg PO Q6H PRN (Reason: pain) Qty: 14 0RF meloxicam 7.5 mg tablet 7.5 mg PO BID PRN (Reason: pain) Qty: 20 0RF tamsulosin [Flomax] 0.4 mg capsule 0.4 mg PO DAILY Qty: 7 0RF No Action acyclovir 400 mg tablet 400 mg PO TID PRN (Reason: herpes outbreak) Qty: 90 3RF Rx Instructions: Take one tablet 3 times daily for 10 days during outbreak Dulera 100-5 mcg/actuation HFA aerosol inhaler 2 puff INHALATION BID Qty: 13 6RF Rx Instructions: Inhale 2 puffs twice daily for 2 weeks, then one puff twice daily thereafter. metformin 1,000 mg tablet 1,000 mg PO BID Qty: 180 3RF labetalol 100 mg tablet 200 mg PO BID Qty: 360 3RF ferrous sulfate 325 mg (65 mg iron) tablet 325 mg PO DAILY docusate sodium [Dulcolax Stool Softener (dss)] 100 mg capsule 100 mg PO DAILY albuterol sulfate 90 mcg/actuation HFA aerosol inhaler 2 puff INHALATION ONCE PRN Multivitamin Gummies See Rx Instructions .ROUTE .COMPLEX Label Comments: 2 gummies PO QDAY Rx Instructions: 2 gummies PO QDAY Vitamin C Gummies See Rx Instructions .ROUTE .COMPLEX Label Comments: 2 gummies PO QDAY ; Rx Instructions: 2 gummies PO QDAY ; furosemide 20 mg tablet 20 mg PO DAILY Qty: 90 3RF potassium chloride 10 mEq capsule, extended release 10 meq PO DAILY Qty: 90 3RF cyclobenzaprine 5 mg tablet 5 mg PO TID PRN (Reason: muscle spasm) Qty: 60 0RF Referrals: Khushboo Freeman MD [Physician] - Gee Funes MD [Physician] - Adam Vega MD [Primary Care Provider] - Visit Report Forms: Patient Portal/API
[2022-08-29 12:04] LABS: Bacteria Urine None Seen; Culture Indicated Urine Cult Not Indicated; RBC Urine 10-30/HPF (0-5/HPF); Squamous Epithelial Cell Urine 0-1 /HPF (0-5/HPF); WBC Urine None Seen (0-5/HPF)
--- NOTE | 2022-08-29 12:20 | DI.CT.S_ITS ---
PROCEDURE: CT KIDNEY URETER BLADDER (KUB) INDICATIONS: right flank/abd pain, ? stone TECHNIQUE: Axial sections were acquired from the lung bases to the pubic symphysis. Coronal and sagittal reformats were performed. For radiation dose reduction, the following was used: automated exposure control, adjustment of mA and/or kV according to patient size. COMPARISON: [facility], CT, CT ABDOMEN PELVIS W CON, 08/03/2019, 21:19. FINDINGS: There are multiple right ureteral calculi suspected. Definite right ureteral calculus on series 2 image 55 measuring 3 mm produces moderate right hydroureteronephrosis and moderate right perinephric fat stranding. Another suspected punctate calculus is present in the right ureter on series 2, image 71 and another possible punctate calcific density on series 2, image 66, both measuring no greater than 1 mm. Nonobstructing right lower pole renal calculus measuring 1 mm (series 2, image 58). No urinary tract calculus or hydroureteronephrosis on the left. Urinary bladder normal. Grossly normal unenhanced CT appearance of the liver, spleen, pancreas, gallbladder, and adrenal glands. No acute enteric abnormality. Left ovarian cyst with a nodule measuring 2.3 cm. No acute enteric abnormality. Included portions of the lung bases are clear. IMPRESSION: Moderate right hydroureteronephrosis secondary to obstructing 3 mm proximal right ureteral calculus. Possible/suspected punctate 1 mm calculi in the mid and distal right ureter also. Left ovarian cyst with solid nodule. Findings suspicious for neoplasm. Follow-up ultrasound recommended. Dictated by: JuanP ablo Monroe M.D. on 08/29/2022 at 12:41 Approved by: Juan Pablo Monroe M.D. on 08/29/2022 at 12:46
[2022-08-29] MEDS: MORPHINE 4 MG/ML INJ IV (13:27)
--- NOTE | 2022-08-29 13:52 | PC.NURSE ---
attempted to consult dr pittman for oncall ob consult. dr pittman and dr villasenor both in emergency c sections at this time. spoke with westley in the office at 1349 pm , she suggested maybe using oncal medcall dr aleman otherwise one of oncall docs will be free likely in a couple hours.
[2022-08-29 15:03] LABS: Cancer Antigen 125 6.3 U/mL (0-35)
== END 2022-08-29 14:23 | disposition home or self-care (01) ==
PROVIDERS: Emergency Provider Emergency Medicine; PCP Internal Medicine
DX: N20.0 Calculus of kidney (principal); N83.202 Unspecified ovarian cyst, left side; R11.2 Nausea with vomiting, unspecified
CPT/HCPCS: 36415; 74176; 80053; 81003; 81015; 81025; 83690; 85025; 86304; 93005; 93010; 96374; 96375; 99284; J1885; J2270; J2405

== ENCOUNTER → 2022-09-06 06:48 | Outpatient (CLI) | payer OTHER, MEDICAID, SELFPAY ==
--- NOTE | 2022-09-06 06:50 | DI.US.S_ITS ---
PROCEDURE: US PELVIC COMPLETE INDICATIONS: LEFT OVARIAN CYST ON CT 08/29/2022 TECHNIQUE: Real-time scanning was performed of the pelvic organs, with image documentation. Additional endovaginal scanning was necessary due to incomplete visualization of the adnexal and endometrial structures by transabdominal scanning. COMPARISON: [facility], CT, CT KIDNEY URETER BLADDER (KUB), 08/29/2022, 12:19. FINDINGS: Suboptimal examination due to body habitus. Uterus: Uterus is anteverted and normal in size at 7.7 x 4.4 x 3.3 cm. The myometrium is heterogeneous. The endometrium measures 8.1 mm. A 4 mm cystic area is seen within the endometrium. There appears to be a 1.4 x 1.1 x 1.0 cm intramural fibroid in the left uterine wall. Ovaries: The right ovary is surgically removed. The left ovary measures 5.9 x 3.3 x 4.4 cm, with a calculated ovarian volume of 44.5 cc. There is a complex cyst in the left adnexa measuring approximately 2.0 x 2.5 cm. There is a daughter cyst within the cyst. In addition, there is a 0.5 x 0.7 x 0.6 cm hyperechoic nodule within the cyst. On Doppler ultrasound, there is no internal vascularity. Less than 12 follicles can be seen. No adnexal masses are seen. Other: No pathologic free abdominal or pelvic fluid. IMPRESSION: 1. A complex cystic mass in the left ovary. On Doppler ultrasound, there is no vascularity. Recommend ultrasound follow-up. 2. A 4 mm cyst in the endometrium, most likely an endometrial cyst. 3. Suspect a small intramural fibroid involving the left uterine wall. 4. No free fluid in pelvis. We strive to produce accurate, complete, and clear reports of imaging services. To assist us in improving patient care, this report was composed using standard report templates and voice recognition software. Therefore, it may contain abnormal punctuation, insertions and/or omissions. Occasional wrong-word or sound-alike substitutions may occur. Though we review the report and make efforts to correct it, we do recommend that the report be read carefully in proper context to recognize any text inaccuracies. Dictated by: Mita Salas M.D. on 09/06/2022 at 9:04 Approved by: Mita Salas M.D. on 09/06/2022 at 10:34
[2022-09-06 08:27] LABS: HCG Quantitative /Beta subunit < 2.4 mIU/mL
== END ==
PROVIDERS: PCP Internal Medicine; Referring Provider Obstetrics & Gynecology; Visit Provider Obstetrics & Gynecology
DX: N83.202 Unspecified ovarian cyst, left side (principal); N91.2 Amenorrhea, unspecified; N85.8 Other specified noninflammatory disorders of uterus
CPT/HCPCS: 36415; 76830; 76856; 84702

== ENCOUNTER → 2022-11-22 14:14 | Outpatient (CLI) | payer OTHER, SELFPAY ==
[2022-11-22 17:53] LABS: COVID19 -Nasal RAPID Negative (Negative)
== END ==
PROVIDERS: PCP Internal Medicine; Visit Provider Obstetrics & Gynecology
DX: Z20.822 Contact with and (suspected) exposure to COVID-19 (principal); Z01.812 Encounter for preprocedural laboratory examination
CPT/HCPCS: 87635; C9803

== ENCOUNTER 2022-11-23 09:17 | Day surgery (SDC) | payer OTHER, SELFPAY ==
[2022-11-17 13:08] VITALS: BMI 49.9
[2022-11-23] VITALS (11 sets, daily range): BP systolic 132–188; BP diastolic 78–108; PULSE 62–79; RESP 12–23; TEMP 36.3–36.7; O2SAT 94–98; BMI 49.9
--- NOTE | 2022-11-23 | PATH_ITS ---
[facility] Accession Number: [id number] . 01 Material submitted: . ovary - LEFT OVARY . 01 Diagnosis: Left Ovary, Left Oophorectomy: Benign ovary with mature cystic teratoma, see microscopic description. Negative for atypia and malignancy. [facility] 11/27/2022 1443 Local . 01 Electronically signed: . Dexter Benavides MD, Pathologist NPI- [id number] . 01 Gross description: . The specimen is received in formalin, labeled with the patient's name, , and left ovary, and consists of an intact jones to congested cerebriform ovary weighing 24 g and measuring 4.7 x 3.5 x 2.9 cm. The external surface is inked blue. Sectioning reveals a thin, smooth-walled cystic structure measuring 3.0 x 2.3 x 2.3 cm filled with yellow-jones, solidified, gelatinous material. The esteves of the cyst are smooth with no papillary excrescences and average 0.1 cm thick. The cyst distorts the ovarian parenchyma which has an unremarkable physiologic cut surface. Correctional Classification Counselor sections to include cyst and normal ovary are submitted in cassettes A1-A4. ([id number]) /[facility] 11/25/2022 1612 Local . 01 Microscopic: . Microscopic examination reveals a cystic structure, 3 cm (per gross description) lined by thyroid follicles, without evidence of cytologic atypia or malignancy. 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 . There is no evidence of atypia or malignancy. . 01 Pathologist provided ICD-10: N83.292 . 01 CPT . 406201 Specimen Comment: A courtesy copy of this report has been sent to [phone] Performed at: 01 [facility] [address] [facility], [place], [place] [id number] MD Ernesto Basilio MD Phone: [phone]
[2022-11-23] MEDS: LACTATED RINGERS 1,000 ML 100 ML IV (12:54)
--- NOTE | 2022-11-23 12:59 | SUR.PREOP ---
Dr Morley notified of BP 182/100. No orders to treat. Dr Morley notified of 81 mg ASA with last dose 11/22/22. No new orders.
--- NOTE | 2022-11-23 13:06 | PM.HP.1 ---
History of Present Illness History of Present Illness Date Patient Seen: 11/23/22 Time Patient Seen: 13:07 Chief complaint: SDC Narrative: Patient is a 37-year-old 10 para 2 with a complex left ovarian cyst. She presents for a laparoscopic removal of the left ovary. He previously had the right ovary and both tubes removed. CA 125: 6.3 Patient History Medical History Anemia Diabetes type 2, controlled Essential (primary) hypertension Genital herpes Heavy menstrual period (~2002) Hepatic steatosis Herpes (~2005) Morbid obesity with BMI of 50.0-59.9, adult Obstructive sleep apnea Ovarian cyst (~2006) Uncontrolled type 2 diabetes mellitus Unspecified asthma Ventral hernia Surgical History Anesthesia History of endometrial ablation History of prior ablation treatment (~2015) History of removal of cyst (~2007) History of salpingo-oophorectomy History of surgery (~2018) History of tonsillectomy (~1991) Status post surgical removal of both fallopian tubes Glenn teeth removed (~2001) Family & Social History Family History Father Stroke Mother History of heart disease Hypertension Grandmother Diabetes mellitus Social History: household members spouse Tobacco & Substance use: Smoking Status Never smoker alcohol intake never alcohol intake frequency 0-2 drinks per day Substance Use Type marijuana Meds Home Medications and Allergies Home Medications Medication Instructions Recorded Confirmed Type Multivitamin Gummies See Rx Instructions .Route .COMPLEX 05/05/19 11/23/22 History albuterol sulfate 90 mcg/actuation 2 puff inhalation ONCE PRN 05/05/19 11/23/22 History aerosol inhaler Shortness Of Breath docusate sodium 100 mg capsule 100 mg PO DAILY 05/05/19 11/23/22 History (Dulcolax Stool Softener (docusate)) ferrous sulfate 325 mg (65 mg 325 mg PO DAILY 05/05/19 11/23/22 History iron) tablet Vitamin C Gummies See Rx Instructions .Route .COMPLEX 05/27/19 11/23/22 History acyclovir 400 mg tablet 400 mg PO TID PRN herpes outbreak 05/14/20 11/23/22 Rx #90 tabs furosemide 20 mg tablet 20 mg PO DAILY #90 tabs 11/10/21 11/23/22 Rx mometasone-formoterol HFA 100 2 puff inhalation BID #13 grams 06/13/22 11/23/22 Rx mcg-5 mcg/actuation aerosol inhaler (Dulera) metformin 1,000 mg tablet 1,000 mg PO BID #180 tabs 06/29/22 11/23/22 Rx labetalol 100 mg tablet 200 mg PO BID #360 tabs 08/15/22 11/23/22 Rx meloxicam 7.5 mg tablet 7.5 mg PO BID PRN pain #20 tabs 08/29/22 11/23/22 Rx oxycodone 5 mg tablet 5 mg PO Q6H PRN pain #14 tabs 08/29/22 11/23/22 Rx tamsulosin 0.4 mg capsule (Flomax) 0.4 mg PO DAILY #7 caps 08/29/22 11/23/22 Rx cyclobenzaprine 5 mg tablet 5 mg PO TID PRN muscle spasm #60 09/07/22 11/23/22 Rx tabs potassium chloride 10 mEq 10 meq PO DAILY #90 caps 11/21/22 11/23/22 Rx capsule,extended release Allergies Allergy/AdvReac Type Severity Reaction Status Date / Time Penicillins Allergy Severe Anaphylactic Verified 11/23/22 12:27 shock cephalexin [From Keflex] AdvReac Severe Severe rash Verified 11/23/22 12:27 Exam Vital Signs (past 8 hours): - 11/23/22 12:36 Temperature 97.4 F L Pulse Rate 73 Respiratory Rate 16 Blood Pressure 182/100 H Pulse Oximetry 98 Oxygen Delivery Method Room Air Oxygen Delivery Method Room Air Narrative Exam Narrative: HEENT: No thyromegaly, no anterior cervical or supraclavicular lymphadenopathy. Lungs:Clear to auscultation bilaterally, no wheezes. Cardiovascular: Regular rate and rhythm, no murmurs, rubs, or gallops. Abdomen: Obese. Well-healed laparoscopy scars. No hepatosplenomegaly. No masses palpable. External genitalia: Normal Vagina: Normal Cervix: Normal Bimanual exam: 8 Week size anteverted uterus. Mobile. Extremities: No edema Assessment & Plan Assessment & Plan narrative: Assessment: 37-year-old 10 para 2 with a complex left ovarian cyst Plan: Laparoscopic left oophorectomy The risks, benefits, and alternatives to the procedure were explained to the patient. The risks including bleeding, infection, injury to the bowel, bladder, or ureters. She understands these risks and agrees to proceed. A full par Q was held and consent form was signed. COVID-19 COVID-19 status: Negative Result date/Date tested (Pos, Neg/Pending): 11/22/22 Time Spent With Patient Time with patient: less than 30 minutes Critical Care time: I spent a total of [] minutes of critical care time on this patient's care today; this time is exclusive of procedural time.
--- NOTE | 2022-11-23 13:11 | PM.PREOP ---
Pre-operative Note COVID-19 COVID-19 status: Negative Result date/Date tested (Pos, Neg/Pending): 11/22/22 Criteria for continued procedure: Non-surgical alternatives not available or appropriate per current SOC Interval Note History & Physical reviewed/Exam performed by Physician: Yes Changes to H&P: No H&P completed within 30 days and has changed as indicated here:: 11/23/22
--- NOTE | 2022-11-23 13:53 | SUR.OPER ---
Lithotomy on padded OR bed, head on pillow, left arm tucked and padded, right arm secured on padded arm board at <90 degrees abduction. Legs secured in padded yellow fins stirrups. Pt positioned per direction and supervision of Dr Freeman.
[2022-11-23] MEDS: ACETAMINOPHEN IV 1,000 MG/100 ML VIAL 400 MG IV (13:55)
[2022-11-23] MEDS: BUPIVACAINE 0.5% W/ EPI (PF) 30 ML VIAL INJ (14:27)
[2022-11-23] MEDS: CLINDAMYCIN 900 MG/50 ML PIGGYBACK 50 MG IV (14:52)
--- NOTE | 2022-11-23 15:07 | PM.GYNOP.1 ---
Operative Date/Time/Diagnoses Date of procedure: 11/23/22 Time of procedure: 15:07 Pre-op diagnosis: Complex left ovarian cyst Left lower quadrant pain Post-op diagnosis: same Procedure & Clinicians Procedure: Procedures Operation Date: 11/23/22 10:45 Actual Procedure Side Surgeon p Laparoscopic oophorectomy Left Khushboo Freeman MD Indications: Complex left ovarian cyst Surgeon: Khushboo Freeman Anesthesia Type: General and Local Operative Notes Findings: 7 cm left ovarian complex cyst Tubes and right ovary previously removed Closure Type: primary Specimen(s): other (left ovary) Applied: catheter (in/out) Estimated blood loss (mL): 50 Blood products transfused: none Procedure in detail: After informed consent was obtained, the patient was taken to the operating room where she was placed in the dorsal supine position. After adequate general endotracheal anesthesia was achieved, she was placed in the dorsal lithotomy position, and prepped and draped in the usual sterile fashion. A time-out was performed. A bivalve speculum was placed into the vagina and the anterior lip of the cervix was grasped with a single-tooth tenaculum. The cervical os was sequentially dilated until the Zumi uterine manipulator could pass easily into the endometrial cavity. The single-tooth tenaculum was removed from the anterior lip of the cervix. The bivalve speculum was removed from the vagina. Attention was then turned to the abdomen where 6 cc of 0.5% Marcaine with epinephrine were injected in the umbilical fold. A 5 mm incision was made. The Veress needle was placed into the peritoneal cavity, and its placement confirmed by aspiration and drop test. With bariatric settings, the abdomen was insufflated with 4.8 L of CO2. The Veress needle was removed, and a long 5 mm trocar was placed. Two other incisions were made 4 cm lateral to the midline at the level of the umbilicus after 6 cc of 0.5% Marcaine with epinephrine were injected. Two long 5 mm trocars were placed under direct visualization. With the patient in steep Trendelenburg, the left ovary was identified and grasped with an atraumatic grasper. The infundibulopelvic ligament on the left side was cauterized and cut with the LigaSure. The utero-ovarian vessels were cauterized and cut with a LigaSure. There was a small amount of bleeding noted from the utero-ovarian pedicle. This was cauterized with the LigaSure for hemostasis. The pelvis was copiously irrigated with warm normal saline. The area was observed and there was no bleeding noted. 6 cc of 0.5% Marcaine with epinephrine were injected in the midline above the pubic symphysis. A 12 mm incision was made. A 12 mm trocar was placed under direct visualization. The large endobag was placed through the suprapubic trocar, the left ovary was placed into the bag. The trocar was removed. The bag was brought up through the incision by blunt dissection of the fascia. This was handed off for specimen. The suprapubic fascial incision was closed with 0 Vicryl in a running fashion. Two simple interrupted sutures were placed in the subcutaneous layer on the suprapubic incision. The pelvis was irrigated and there was no bleeding noted. The instruments were removed from the abdomen. The CO2 was allowed to escape. The 5 mm incisions were closed with 4-0 Monocryl in a subcuticular fashion. Steri-Strips and Allevyn dressings were placed over all 4 incisions. The Zumi uterine manipulator was removed from the uterus. Sponge, lap, and instrument counts were correct x2. The patient tolerated the procedure well, and was taken to PACU in stable condition. Complications: none Post-operative Condition: stable Disposition: PACU Plan for aftercare: Home after recovery
[2022-11-23] MEDS: ONDANSETRON 4 MG/2 ML INJ IV (15:32)
[2022-11-23] MEDS: OXYCODONE/ACETAMINOPHEN 5/325 TABLET 1 TAB PO (15:36)
== END 2022-11-23 16:48 | disposition home or self-care (01) ==
PROVIDERS: PCP Internal Medicine; Referring Provider Obstetrics & Gynecology; Visit Provider Obstetrics & Gynecology
PROC: (CPT 58661; principal; 2022-11-23 10:45)
DX: D27.1 Benign neoplasm of left ovary (principal); E11.9 Type 2 diabetes mellitus without complications; I10 Essential (primary) hypertension; Z79.84 Long term (current) use of oral hypoglycemic drugs; Z68.43 Body mass index [BMI] 50.0-59.9, adult; E66.01 Morbid (severe) obesity due to excess calories
CPT/HCPCS: 58661; 81025; J0131; J0330; J1100; J2250; J2405; J2704; J3010

== ENCOUNTER → 2023-05-08 15:10 | Outpatient (CLI) | payer OTHER, SELFPAY ==
[2023-05-08 17:23] LABS: Urine N gonorrhoeae NOT DETECTED
[2023-05-08 17:24] LABS: Urine Chlamydia NOT DETECTED
[2023-05-09 11:16] LABS: RPR Screen Non Reactive (Non Reactive)
[2023-05-09 17:54] LABS: HIV 1 & 2 Ab/Ag 4th Gen Combo NEGATIVE (NEGATIVE); Hep C Virus Ab w/Reflex Quant NEGATIVE s/c (NEGATIVE); Hepatitis B Surface Antigen NEGATIVE s/c (NEGATIVE)
== END ==
PROVIDERS: PCP Internal Medicine; Referring Provider Nurse Practitioner Family; Visit Provider Nurse Practitioner Family
DX: Z01.419 Encounter for gynecological examination (general) (routine) without abnormal findings (principal); Z20.2 Contact with and (suspected) exposure to infections with a predominantly sexual mode of transmission
CPT/HCPCS: 36415; 86592; 86803; 87340; 87389; 87491; 87591

== ENCOUNTER → 2023-09-12 07:35 | Outpatient (CLI) | payer OTHER, SELFPAY ==
[2023-09-12 08:32] LABS: Add Manual Diff / Slide Review NO; Basophils Absolute Auto 100 /uL (0-100); Basophils Percent Auto 0.8 % (0-2); Eosinophils Absolute Auto 500 /uL (0-450); Eosinophils Percent Auto 4.4 % (2-4); Hematocrit 35.8 % (36-46); Hemoglobin 11.7 g/dL (12.0-16.0); Lymphocytes Absolute Auto 2000 /uL (1100-4500); Lymphocytes Percent Auto 17.7 % (25-40); Mean Corpuscular HGB Conc 32.6 % (30-36); Mean Corpuscular Hemoglobin 25.6 PG (26-34); Mean Corpuscular Volume 78.6 fL (80-100); Monocytes Absolute Auto 500 /uL (0-900); Monocytes Percent Auto 4.6 % (3-14); Neutrophils Absolute Auto 8400 /uL (1500-7000); Neutrophils Percent Auto 72.5 % (50-75); Platelet Count 285 X10^3/uL (150-400); Red Blood Cell Count 4.56 X10^6/uL (4.0-5.2); Red Cell Distribution Width 16.3 % (11.6-14.8); White Blood Cell Count 11.5 X10^3/uL (4.5-11.0)
[2023-09-12 08:48] LABS: Hemoglobin A1C% w Est Avg Glu 7.8 % (4.0-6.0)
[2023-09-12 08:49] LABS: Alanine Aminotransferase 110 IU/L (<35); Albumin 4.6 g/dL (3.5-5.0); Albumin Globulin Ratio 1.5 (1.0-2.8); Alkaline Phosphatase 86 U/L (38-126); Aspartate Aminotransferase 80 IU/L (14-36); BUN Creatinine Ratio 27.6 (6-22); Bilirubin Total 0.5 mg/dL (0.2-1.3); Blood Urea Nitrogen 16 mg/dL (7-17); Calcium 9.9 mg/dL (8.4-10.2); Carbon Dioxide 27 mmol/L (22-32); Chloride 98 mmol/L (98-107); Cholesterol 169 mg/dL (140-199); Estimated Glomerular Filt Rate > 60 mL/min (>60); Globulin 3.1 g/dL (1.7-4.1); Glucose 168 mg/dL (70-100); HDL Cholesterol 34 mg/dL (40-60); HEMOLYSIS < 15 (0-50); LDL Cholesterol Calculated 80 mg/dL (<100); Potassium 4.6 mmol/L (3.4-5.1); Sodium 137 mmol/L (137-145); Total Protein 7.7 g/dL (6.3-8.2); Triglycerides 277 mg/dL (35-150)
[2023-09-12 09:13] LABS: TSH w/ Reflex to FT4 1.85 uIU/mL (0.47-4.68)
[2023-09-12 09:28] LABS: Creatinine Urine Random 48.4 mg/dL
[2023-09-12 09:32] LABS: Microalbumi Creatinin Ratio Ur 117.7 ug/mg CR (<30); Microalbumin Urine Random 5.7 mg/dL (0-1.6)
== END ==
PROVIDERS: PCP Internal Medicine; Referring Provider Internal Medicine; Visit Provider Internal Medicine
DX: E11.9 Type 2 diabetes mellitus without complications (principal); E66.01 Morbid (severe) obesity due to excess calories; Z68.43 Body mass index [BMI] 50.0-59.9, adult; I10 Essential (primary) hypertension; K76.0 Fatty (change of) liver, not elsewhere classified; G47.33 Obstructive sleep apnea (adult) (pediatric)
CPT/HCPCS: 36415; 80053; 80061; 82043; 82570; 83036; 84443; 85025

== ENCOUNTER → 2023-09-18 09:46 | Outpatient (CLI) | payer OTHER, SELFPAY ==
--- NOTE | 2023-09-18 09:47 | DI.US.S_ITS ---
PROCEDURE: US ABDOMEN LIMITED INDICATIONS: PAIN AND FULLNESS FELT INFERIOR TO UMBILICUS TECHNIQUE: Real-time focused scanning was performed of the abdomen, with image documentation. Color Doppler was also utilized. COMPARISON: [facility], CT, CT KIDNEY URETER BLADDER (KUB), 08/29/2022, 12:19. [facility], US, US ABDOMEN LIMITED, 07/17/2019, 16:27. FINDINGS: Scanning is performed at the area of clinical concern inferior to the umbilicus. No masses or fluid collections are seen. No lipoma is seen. On these images, no findings of hernia can be seen. No abnormal vascularity is seen. IMPRESSION: Negative ultrasound, without a cause of the patient's presenting history identified. Dictated by: Gurjit Ware M.D. on 09/18/2023 at 10:07 Approved by: Gurjit Ware M.D. on 09/18/2023 at 10:08
== END ==
PROVIDERS: PCP Internal Medicine; Referring Provider Internal Medicine; Visit Provider Internal Medicine
DX: R10.33 Periumbilical pain (principal)
CPT/HCPCS: 76705

== ENCOUNTER → 2023-12-08 08:03 | Outpatient (CLI) | payer OTHER, SELFPAY ==
[2023-12-08 09:44] LABS: Hemoglobin A1C% w Est Avg Glu 7.3 % (4.0-6.0)
[2023-12-08 09:51] LABS: BUN Creatinine Ratio 28.1 (6-22); Blood Urea Nitrogen 16 mg/dL (7-17); Calcium 9.7 mg/dL (8.4-10.2); Carbon Dioxide 27 mmol/L (22-32); Chloride 98 mmol/L (98-107); Estimated Glomerular Filt Rate > 60 mL/min (>60); Glucose 195 mg/dL (70-100); HEMOLYSIS < 15 (0-50); Sodium 137 mmol/L (137-145)
[2023-12-08 09:56] LABS: Potassium 4.4 mmol/L (3.4-5.1)
== END ==
LOC: LAB 08:04
PROVIDERS: PCP Internal Medicine; Referring Provider Internal Medicine; Visit Provider Internal Medicine
DX: E11.65 Type 2 diabetes mellitus with hyperglycemia (principal)
CPT/HCPCS: 36415; 80048; 83036

== ENCOUNTER → 2024-03-07 07:55 | Outpatient (CLI) | payer OTHER, SELFPAY ==
[2024-03-07 09:06] LABS: Alanine Aminotransferase 122 IU/L (<35); Albumin Globulin Ratio 1.7 (1.0-2.8); Alkaline Phosphatase 97 U/L (38-126); Aspartate Aminotransferase 105 IU/L (14-36); BUN Creatinine Ratio 29.1 (6-22); Bilirubin Total 0.6 mg/dL (0.2-1.3); Blood Urea Nitrogen 16 mg/dL (7-17); Calcium 10.2 mg/dL (8.4-10.2); Carbon Dioxide 31 mmol/L (22-32); Chloride 98 mmol/L (98-107); Estimated Glomerular Filt Rate > 60 mL/min (>60); Glucose 217 mg/dL (70-100); HEMOLYSIS < 15 (0-50); Potassium 4.9 mmol/L (3.4-5.1); Sodium 137 mmol/L (137-145)
== END ==
PROVIDERS: PCP Internal Medicine; Referring Provider Internal Medicine; Visit Provider Internal Medicine
DX: I10 Essential (primary) hypertension (principal); E11.65 Type 2 diabetes mellitus with hyperglycemia
CPT/HCPCS: 36415; 80053; 83036

== ENCOUNTER → 2024-04-13 12:16 | Outpatient (CLI) | payer OTHER, SELFPAY ==
--- NOTE | 2024-04-13 12:50 | DI.ECHO.S_ITS ---
Version: 1 Study ID: [id number] [place] [id number] Name: JASMINA DELACRUZ Study Date: 04/13/2024, 12: 10 PM : 1985 Gender: Female Height: 69 in Age: 38 Years Weight: 376 lb BSA: 2.7 mA? Ordering: JOANNE BASHIR Referring: JOANNE BASHIR Clinician: Juan Pablo Stock Reason For Study: SAUL-DANLOS SYNDROME History: Summary Statements This is a technically difficult study characterized by limited endocardial visualization. Study could not be enhanced with Definity due to difficulty obtaining IV access. Due to limited acoustic windows, can not comment on LV size, wall thickness, wall motion and LV systolic function. Similarly can not comment on valve function. Ascending aorta was not well seen. Transverse aorta diameter is normal. Since greatest complication of EDS is aortic disease, consider CT-angiogram of chest and abdomen to rule out aneurysms. Procedure: A two-dimensional transthoracic echocardiogram with color flow and Doppler was performed. The study quality was non-diagnostic. There is no prior echocardiogram noted for this patient. The patient was in sinus rhythm with heart rates between 91-99 bpm during the exam. Left Ventricle: Due to the poor quality of the echocardiogram, an assessment of left ventricular ejection fraction cannot be made. NOT WELL VISUALIZED. Right Ventricle: The right ventricle is not well visualized. Atria: The interatrial septum is not well visualized. The left atrium is not well visualized. The left atrium grossly appears normal in size. Right atrium not well visualized. Mitral Valve: The mitral valve is not well visualized. Aortic Valve: The aortic valve is not well visualized. Tricuspid Valve: The tricuspid valve is not well visualized. Pulmonic Valve: The pulmonic valve is not well visualized. Great Vessels: The ascending aorta could not be visualized. The aortic root is not well visualized. The inferior vena cava was not visualized. Pericardium/ Pleura: 2D and M-Mode Measurements and Calculations Ao Arch Diam (Prox Trans): 3.0 cm LA A4 area: 24.8 chicken vaccinator? LA length (vol): 6.0 cm Doppler Measurements and Calculations Ao V2 max: 123.9 cm/sec LVOT Max Armando: 88.8 cm/sec Ao V2 mean: 95.1 cm/sec LV V1 max P.2 mmHg Ao V2 VTI: 19.5 cm LV V1 VTI: 15.0 cm Ao max P.1 mmHg Ao mean P.0 mmHg sev ratio: 0.77 PA V2 max: 127.6 cm/sec PA mean P.4 mmHg Electronically signed by: Mirela Tuttle M.D. 04/15/2024, 4: 03 PM
== END ==
PROVIDERS: PCP Internal Medicine; Referring Provider Internal Medicine; Visit Provider Internal Medicine
DX: Q79.60 Ehlers-Danlos syndrome, unspecified (principal)
CPT/HCPCS: 93306

== ENCOUNTER → 2024-04-15 09:07 | Outpatient (CLI) | payer OTHER, SELFPAY ==
[2024-04-15 10:24] LABS: Add Manual Diff / Slide Review NO; Basophils Absolute Auto 100 /uL (0-100); Basophils Percent Auto 0.9 % (0-2); Eosinophils Absolute Auto 300 /uL (0-450); Eosinophils Percent Auto 2.9 % (2-4); Hematocrit 38.5 % (36-46); Hemoglobin 12.7 g/dL (12.0-16.0); Lymphocytes Absolute Auto 2100 /uL (1100-4500); Lymphocytes Percent Auto 20.2 % (25-40); Mean Corpuscular Hemoglobin 26.4 PG (26-34); Mean Corpuscular Volume 79.8 fL (80-100); Monocytes Absolute Auto 600 /uL (0-900); Monocytes Percent Auto 5.9 % (3-14); Neutrophils Absolute Auto 7300 /uL (1500-7000); Neutrophils Percent Auto 70.1 % (50-75); Platelet Count 326 X10^3/uL (150-400); Red Blood Cell Count 4.82 X10^6/uL (4.0-5.2); Red Cell Distribution Width 15.8 % (11.6-14.8); White Blood Cell Count 10.4 X10^3/uL (4.5-11.0)
[2024-04-15 10:40] LABS: HEMOLYSIS < 15 (0-50); Iron 74 ug/dL (37-170)
[2024-04-15 10:43] LABS: Alanine Aminotransferase 138 IU/L (<35); Albumin 5.1 g/dL (3.5-5.0); Albumin Globulin Ratio 1.5 (1.0-2.8); Alkaline Phosphatase 112 U/L (38-126); Aspartate Aminotransferase 133 IU/L (14-36); BUN Creatinine Ratio 31.4 (6-22); Bilirubin Total 0.6 mg/dL (0.2-1.3); Blood Urea Nitrogen 16 mg/dL (7-17); Carbon Dioxide 23 mmol/L (22-32); Chloride 101 mmol/L (98-107); Estimated Glomerular Filt Rate > 60 mL/min (>60); Globulin 3.4 g/dL (1.7-4.1); Glucose 282 mg/dL (70-100); HEMOLYSIS 18 (0-50); Potassium 4.8 mmol/L (3.4-5.1); Sodium 138 mmol/L (137-145); Total Protein 8.5 g/dL (6.3-8.2)
[2024-04-15 10:51] LABS: Percent Iron Saturation 19 % (15-50); Total Iron Binding Capacity 390 ug/dL (265-497); Transferrin 304 mg/dL (206-381)
[2024-04-15 11:09] LABS: TSH w/ Reflex to FT4 1.22 uIU/mL (0.47-4.68)
== END ==
PROVIDERS: PCP Internal Medicine; Referring Provider Internal Medicine; Visit Provider Internal Medicine
DX: I10 Essential (primary) hypertension (principal); E11.21 Type 2 diabetes mellitus with diabetic nephropathy; E66.01 Morbid (severe) obesity due to excess calories; E11.65 Type 2 diabetes mellitus with hyperglycemia; Z68.43 Body mass index [BMI] 50.0-59.9, adult
CPT/HCPCS: 36415; 80053; 83540; 83550; 84443; 85025

== ENCOUNTER → 2024-12-01 08:04 | Outpatient (CLI) | payer OTHER, SELFPAY ==
[2024-12-01 08:49] LABS: Hemoglobin A1C% w Est Avg Glu 10.3 % (4.0-6.0)
[2024-12-01 08:59] LABS: Alanine Aminotransferase 168 IU/L (<35); Albumin 4.8 g/dL (3.5-5.0); Albumin Globulin Ratio 1.8 (1.0-2.8); Alkaline Phosphatase 99 U/L (38-126); Aspartate Aminotransferase 108 IU/L (14-36); BUN Creatinine Ratio 22.8 (6-22); Bilirubin Total 0.5 mg/dL (0.2-1.3); Blood Urea Nitrogen 13 mg/dL (7-17); Calcium 9.6 mg/dL (8.4-10.2); Carbon Dioxide 24 mmol/L (22-32); Chloride 97 mmol/L (98-107); Estimated Glomerular Filt Rate > 60 mL/min (>60); Globulin 2.7 g/dL (1.7-4.1); Glucose 342 mg/dL (70-100); HEMOLYSIS < 15 (0-50); Potassium 4.6 mmol/L (3.4-5.1); Sodium 134 mmol/L (137-145); Total Protein 7.5 g/dL (6.3-8.2)
== END ==
PROVIDERS: PCP Internal Medicine; Referring Provider Internal Medicine; Visit Provider Internal Medicine
DX: E11.65 Type 2 diabetes mellitus with hyperglycemia (principal); I10 Essential (primary) hypertension
CPT/HCPCS: 36415; 80053; 83036

== ENCOUNTER → 2025-02-27 08:44 | Outpatient (CLI) | payer OTHER, SELFPAY ==
[2025-02-27 10:05] LABS: Hemoglobin A1C% w Est Avg Glu 7.5 % (4.0-6.0)
[2025-02-27 10:18] LABS: Alanine Aminotransferase 128 IU/L (<35); Albumin 4.8 g/dL (3.5-5.0); Albumin Globulin Ratio 1.8 (1.0-2.8); Alkaline Phosphatase 94 U/L (38-126); Aspartate Aminotransferase 90 IU/L (14-36); Bilirubin Total 0.5 mg/dL (0.2-1.3); Blood Urea Nitrogen 15 mg/dL (7-17); Calcium 9.9 mg/dL (8.4-10.2); Carbon Dioxide 22 mmol/L (22-32); Chloride 97 mmol/L (98-107); Estimated Glomerular Filt Rate > 60 mL/min (>60); Globulin 2.7 g/dL (1.7-4.1); Glucose 352 mg/dL (70-100); HEMOLYSIS < 15 (0-50); Potassium 4.9 mmol/L (3.4-5.1); Sodium 135 mmol/L (137-145); Total Protein 7.5 g/dL (6.3-8.2)
== END ==
PROVIDERS: PCP Internal Medicine; Referring Provider Internal Medicine; Visit Provider Internal Medicine
DX: E11.65 Type 2 diabetes mellitus with hyperglycemia (principal); I10 Essential (primary) hypertension
CPT/HCPCS: 36415; 80053; 83036

== ENCOUNTER → 2025-05-28 08:38 | Outpatient (CLI) | payer OTHER, SELFPAY ==
[2025-05-28 10:05] LABS: Alanine Aminotransferase 157 IU/L (<35); Albumin 4.9 g/dL (3.5-5.0); Albumin Globulin Ratio 1.5 (1.0-2.8); Alkaline Phosphatase 86 U/L (38-126); Blood Urea Nitrogen 12 mg/dL (7-17); Calcium 9.8 mg/dL (8.4-10.2); Carbon Dioxide 24 mmol/L (22-32); Chloride 99 mmol/L (98-107); Estimated Glomerular Filt Rate > 60 mL/min (>60); Globulin 3.3 g/dL (1.7-4.1); Glucose 252 mg/dL (70-99); HEMOLYSIS < 15 (0-50); Potassium 4.7 mmol/L (3.4-5.1); Sodium 138 mmol/L (137-145); Total Protein 8.2 g/dL (6.3-8.2)
[2025-05-28 10:06] LABS: Hemoglobin A1C% w Est Avg Glu 8.0 % (4.0-6.0)
== END ==
PROVIDERS: PCP Internal Medicine; Referring Provider Internal Medicine; Visit Provider Internal Medicine
DX: E11.65 Type 2 diabetes mellitus with hyperglycemia (principal); I10 Essential (primary) hypertension
CPT/HCPCS: 36415; 80053; 83036

== ENCOUNTER 2025-07-27 11:50 | Emergency (ER) | payer OTHER, SELFPAY ==
[2025-07-27] VITALS (16 sets, daily range): BP systolic 120–155; BP diastolic 58–92; PULSE 61–90; RESP 18; O2SAT 93–98; BMI 51.5
--- NOTE | 2025-07-27 11:58 | DI.RAD.S_ITS ---
PROCEDURE: XR HIP W PEL IF DONE RT 2V INDICATIONS: glf TECHNIQUE: AP pelvis with lateral view(s) of the right hip(s). COMPARISON: None. FINDINGS: Bones: No fractures or dislocations. Mild right hip joint osteoarthritic changes are seen. No evidence of avascular necrosis of femoral head. Pelvic ring appears intact. No suspicious bony lesions. Soft tissues: The visualized bowel gas pattern is normal. No suspicious soft tissue calcifications. IMPRESSION: No acute pelvic or hip fracture. No hip dislocation. Mild right hip joint osteoarthritis. No evidence of avascular necrosis of femoral head. Dictated by: Edward Cevallos M.D. on 07/27/2025 at 12:32 Approved by: Edward Cevallos M.D. on 07/27/2025 at 12:32
--- NOTE | 2025-07-27 14:23 | ED_ITS ---
HPI - Extremity Injury (Lower) General Chief Complaint: Extremity Injury, Lower Stated Complaint: Right hip deformity, fall/slip Time Seen by Provider: 07/27/25 12:02 Source: patient Mode of arrival: Ambulatory History of Present Illness HPI Narrative: Patient is a 39-year-old female history of PCOS diabetes hypertension presenting today with right hip pain. She reports that she was getting out of the pool when suddenly she slipped in her right leg came out from under her. She has pretty severe pain. No head injury or other injury not on anticoagulation. Unable to bear weight Related Data Home Medications ?Medication ?Instructions ?Recorded ?Confirmed Multivitamin Gummies See Rx Instructions .Route . COMPLEX 05/05/19 06/02/25 albuterol sulfate 90 mcg/actuation 2 puff inhalation O NCE PRN 05/05/19 06/02/25 aerosol inhaler Shortness Of Breath docusate sodium 100 mg capsule 100 mg PO DAILY 9 06/02/25 (Dulcolax Stool Softener (docusate)) ferrous sulfate 325 mg (65 mg 325 mg PO DAILY 05/05/19 06/02/25 iron) tablet Vitamin C Gummies See Rx Instructions .Route . COMPLEX 05/27/19 06/02/25 Previous Rx's ?Medication ?Instructions ?Recorded fluticasone propionate 230 2 puff inhalation BID #12 g eder 08/30/23 mcg-salmeterol 21 mcg/actuation HFA inhaler acyclovir 400 mg tablet 400 mg PO TID PRN herpes out break 06/16/24 #90 tabs triamcinolone acetonide 0.1 % See Rx Instructions topi anselmo BID 07/09/24 topical cream #30 grams estradiol 0.05 mg/24 hr semiweekly 1 patch topical 2XW #24 patches 10/13/24 transdermal patch furosemide 20 mg tablet 20 mg PO DAILY #90 tabs 10/20 06/11 glipizide 10 mg tablet 10 mg PO BID #180 tabs 12/04 spironolactone 50 mg tablet 50 mg PO DAILY #90 tabs naltrexone 50 mg tablet 50 mg PO DAILY #30 tabs 0803/13 cyclobenzaprine 5 mg tablet 5 mg PO TID PRN muscle spa sm #60 07/07/25 tabs labetalol 100 mg tablet 200 mg (2 x 100 mg) PO BID # 360 07/23/25 tabs losartan 50 mg tablet 50 mg PO DAILY #90 tabs 03/13 metformin 1,000 mg tablet 1,000 mg PO BID #180 tabs hydrocodone 5 mg-acetaminophen 325 1 tab PO Q6H PRN pa in #10 tabs 07/27/25 mg tablet Allergies Allergy/AdvReac Type Severity Reaction Status Date / Time Penicillins Allergy Severe Anaphylactic Verified 07/27/25 11:54 shock cephalexin (From Keflex) AdvReac Severe Severe rash Verified 07/27/25 11:54 Patient History Medical History Diabetic nephropathy Uncontrolled type 2 diabetes mellitus Diabetes type 2, controlled Hepatic steatosis Anemia Ventral hernia Morbid obesity with BMI of 50.0-59.9, adult Essential (primary) hypertension Unspecified asthma Genital herpes Obstructive sleep apnea Ovarian cyst (~2006) Herpes (~2005) Heavy menstrual period (~2002) Surgical History Status post surgical removal of both fallopian tubes History of endometrial ablation History of salpingo-oophorectomy Anesthesia History of surgery (~2018) History of prior ablation treatment (~2015) History of removal of cyst (~2007) [place] teeth removed (~2001) History of tonsillectomy (~1991) Family History Father Stroke Mother History of heart disease Hypertension Grandmother Diabetes mellitus Social History marital status: household members: spouse occupational status: employed Smoking Status: Current some day smoker second hand exposure: No alcohol intake: never substance use type: does not use eating out: rarely or never Type(s) of exercise: swimming Smoking Status: Current some day smoker alcohol intake frequency: 0-2 drinks per day Exam Initial Vital Signs Initial Vital Signs: Vital Signs Pulse Rate 89 07/27/25 11:56 Pulse Oximetry 97 07/27/25 11:56 GENERAL: 39-year-old female awake a BMI 51 HEENT: Head atraumatic,EOMI, pupils reactive, face symmetric, moist mucous membranes CARDIOVASCULAR: Regular rate and rhythm without murmurs, rubs or gallops. RESPIRATORY: Breath sounds equal bilaterally, no wheezes rales or rhonchi. ABDOMEN: Soft, nontender. Normoactive bowel sounds all 4 quadrants. No guarding or rebound. EXTREMITIES: Normal range of motion, no clubbing or edema. Neurovascularly intact Pelvis is stable right hip good internal external rotation good flexion good extension but tender to touch good distal pedal pulse She has good flexion and extension of the knee. NEUROLOGICAL: Alert and oriented x4.Normal gait and speech. Cranial nerves II through XII grossly intact. SKIN: Warm, dry, no laceration, no petechiae, no rashes or lesions. Course Orders Ordered: ED Orders 07/27/25 11:58 XR hip w pel RT 2V Stat 07/27/25 15:16 CT pelvis wo con Stat Discontinued Medications Hydromorphone HCl (Hydromorphone Hcl 0.5 Mg/0.5 Ml Syringe) 0.5 mg IV NOW ONE Stop: 07/27/25 12:03 Last Admin: 07/27/25 12:36 Dose: 0.5 mg Documented By: RONALDO Hydromorphone HCl (Hydromorphone Hcl 0.5 Mg/0.5 Ml Syringe) 0.5 mg IV NOW ONE Stop: 07/27/25 14:28 Last Admin: 07/27/25 15:18 Dose: Not Given Documented By: SB Hydromorphone HCl (Hydromorphone 1 Mg/Ml Syringe) 1 mg IM NOW ONE Stop: 07/27/25 15:16 Last Admin: 07/27/25 15:25 Dose: 1 mg Documented By: SB Ketorolac Tromethamine (Ketorolac 30 Mg/Ml Vial) 15 mg IV NOW ONE Stop: 07/27/25 14:29 Last Admin: 07/27/25 15:18 Dose: Not Given Documented By: SB Ketorolac Tromethamine (Ketorolac 30 Mg/Ml Vial) 30 mg IM NOW ONE Stop: 07/27/25 15:16 Last Admin: 07/27/25 15:26 Dose: 30 mg Documented By: SB Vital Signs Vital signs: Vital Signs - 8 hr 07/27/25 11:56 07/27/25 11:59 07/27/25 11:59 Pulse Rate 89 85 Blood Pressure 141/64 H Pulse Oximetry 97 96 Oxygen Delivery Method 07/27/25 12:00 07/27/25 12:00 07/27/25 12:30 Pulse Rate 85 Blood Pressure 126/62 120/58 L Pulse Oximetry 97 Oxygen Delivery Method 07/27/25 12:30 07/27/25 13:00 07/27/25 13:01 Pulse Rate 82 85 Blood Pressure 138/63 Pulse Oximetry 97 96 Oxygen Delivery Method 07/27/25 13:01 07/27/25 13:30 07/27/25 13:31 Pulse Rate 86 81 Blood Pressure 142/78 H Pulse Oximetry 95 93 Oxygen Delivery Method 07/27/25 13:31 07/27/25 14:00 07/27/25 14:05 Pulse Rate 81 88 Blood Pressure 143/65 H Pulse Oximetry 96 95 Oxygen Delivery Method Room Air 07/27/25 14:05 07/27/25 14:30 07/27/25 15:00 Pulse Rate 82 61 85 Blood Pressure Pulse Oximetry 97 96 95 Oxygen Delivery Method 07/27/25 15:10 07/27/25 15:10 Pulse Rate 86 Blood Pressure 140/86 Pulse Oximetry 96 Oxygen Delivery Method Room Air MDM - Extremity Injury (Lower) Imaging Data Extremity x-ray #1: Radiologist's Impression: PROCEDURE: XR HIP W PEL IF DONE RT 2V INDICATIONS: glf TECHNIQUE: AP pelvis with lateral view(s) of the right hip(s). COMPARISON: None. FINDINGS: Bones: No fractures or dislocations. Mild right hip joint osteoarthritic changes are seen. No evidence of avascular necrosis of femoral head. Pelvic ring appears intact. No suspicious bony lesions. Soft tissues: The visualized bowel gas pattern is normal. No suspicious soft tissue calcifications. IMPRESSION: No acute pelvic or hip fracture. No hip dislocation. Mild right hip joint osteoarthritis. No evidence of avascular necrosis of femoral head. Dictated by: Edward Cevallos M.D. on 07/27/2025 at 12:32 Approved by: Edward Cevallos M.D. on 07/27/2025 at 12:32 CT scan - abdomen/pelvis: Radiologist's Impression: PROCEDURE: CT PEL WO CON INDICATIONS: Ongoing right hip pain TECHNIQUE: Noncontrast 3 mm axial sections acquired through the bony pelvis, with coronal and sagittal reformatting. COMPARISON: [facility], , XR HIP W PEL RT 2V, 07/27/2025, 11:57. FINDINGS: Image quality: Excellent. Bones: Pelvic ring is intact. No acute pelvic or hip fracture. No hip dislocation. Mild bilateral hip joint osteoarthritic changes are seen with superior joint space narrowing and subchondral sclerosis. No evidence of avascular necrosis of f emoral head. No suspicious bony lesions. Mild degenerative endplate changes are noted in visualized lower lumbar spine. Soft tissues: There is no pelvic free fluid or free air. No abnormal bowel wall thickening or mesenteric fat stranding. No abscess collection. A bladder wall thickness is normal. Uterus and bilateral adnexa show no gross abnormalities. No soft tissue mass or drainable fluid collection is seen in pelvic soft tissue. Nonspecific mildly enlarged bilateral inguinal lymph nodes are seen measures up to 1.1 cm in size in left inguinal region. Prominent lymph nodes along left iliac chain is also noted measures up to 1 cm in size series 3, image 51. IMPRESSION: 1. Symmetric appearing mild bilateral hip joint osteoarthritis. No acute fracture or dislocation. No evidence of avascular necrosis of femoral head. No suspicious intraosseous lesions. 2. No pelvic free fluid or free air. No soft tissue mass or drainable fluid collection. Nonspecific mildly enlarged lymph nodes are seen in bilateral iliac region and along left iliac chain which may be reactive in nature. Dictated by: Edward Cevallos M.D. on 07/27/2025 at 16:13 Approved by: Edward Cevallos M.D. on 07/27/2025 at 16:16 [facility] Narrative Medical decision making narrative: Patient 39-year-old female history of autism presenting today with ground level fall unable to bear weight with her right hip. X-ray is negative but still really can not quite bear weight. CT ordered which was also negative for fracture. She really does kind of seem to be tender in her buttock. Possible hamstring sprain. She is given pain medication here in the ED. She says she very anxious and wanting to leave but still not able to bear weight. She is given food water able to get dressed monitor taken off which helps calm her down. Suspect more of a bruise in the sprain no fracture identified. Patient has tubal ligation denies any chance of , aware radiation risk for CT, Discharge Plan Departure Patient Disposition: Home Clinical Impression: Hamstring muscle strain, Contusion Instructions: Contusion, Hamstrings Strain Activity Restrictions/Additional Instructions: *You have been diagnosed with contusion, hamstring strain *What to do: Use crutches as needed increase weight-bearing as tolerated ice or heat *Continue to take medications as directed Motrin 600 mg every 6 hours for [id number] pain [place] 1 tablet every 6 hours only if needed for severe pain *Follow up with your primary care provider in 2-3 days or call [phone] *Return to ER if you should have inability to move leg or any new, worsening or concerning symptoms CONTROLLED SUBSTANCE DISCHARGE (Narcotoic/benzodiazepine/Flexeril/Phenergan) 1. You have been prescribed narcotic medications, it does have acetaminophe n/Tylenol/paracetamol in it, DO NOT TAKE MORE THAN 4,00mg in 24 hours of Tylenol. TRAMADOL DOES NOT CONTAIN TYLENOL 2. Please understand that we cannot provide further refills of narcotics, benzodiazepines or controlled substances through the ED and her pain management will need to be through your provider. 3. While on these medications you cannot drive or operate heavy machinery. 4. You cannot sign legal documents or perform any duties such as this. 5. As long as you're taking opiate pain medications he should also be taking a stool softener such as Colace, Dulcolax, MiraLAX or prune juice, to help avoid constipation. Prescriptions: New hydrocodone-acetaminophen 5-325 mg tablet 1 tab PO Q6H PRN (Reason: pain) Qty: 10 0RF No Action fluticasone propion-salmeterol 230-21 mcg/actuation HFA aerosol inhaler 2 puff inhalation BID Qty: 12 7RF Rx Instructions: administer with spacer acyclovir 400 mg tablet 400 mg PO TID PRN (Reason: herpes outbreak) Qty: 90 3RF Rx Instructions: Take one tablet 3 times daily for 10 days during outbreak estradiol 0.05 mg/24 hr patch semiweekly 1 patch topical 2XW Qty: 24 3RF furosemide 20 mg tablet 20 mg PO DAILY Qty: 90 3RF spironolactone 50 mg tablet 50 mg PO DAILY Qty: 90 3RF naltrexone 50 mg tablet 50 mg PO DAILY Qty: 30 6RF cyclobenzaprine 5 mg tablet 5 mg PO TID PRN (Reason: muscle spasm) Qty: 60 3RF metformin 1,000 mg tablet 1,000 mg PO BID Qty: 180 3RF losartan 50 mg tablet 50 mg PO DAILY Qty: 90 3RF labetalol 100 mg tablet 200 mg PO BID Qty: 360 3RF triamcinolone acetonide 0.1 % cream See Rx Instructions topical BID Qty: 30 0RF Rx Instructions: 1 mg topically bid TOP BID for two weeks ferrous sulfate 325 mg (65 mg iron) tablet 325 mg PO DAILY docusate sodium [Dulcolax Stool Softener (dss)] 100 mg capsule 100 mg PO DAILY albuterol sulfate 90 mcg/actuation HFA aerosol inhaler 2 puff INHALATION ONCE PRN (Reason: Shortness Of Breath) Multivitamin Gummies See Rx Instructions .ROUTE .COMPLEX Patient Comments: 2 gummies PO QDAY Rx Instructions: 2 gummies PO QDAY Vitamin C Gummies See Rx Instructions .ROUTE .COMPLEX Patient Comments: 2 gummies PO QDAY ; Rx Instructions: 2 gummies PO QDAY ; glipizide 10 mg tablet 10 mg PO BID Qty: 180 3RF Referrals: Adam Vega MD [Primary Care Provider, Internal Medicine] Stand Alone Forms: Patient Portal/API
--- NOTE | 2025-07-27 15:16 | DI.CT.S_ITS ---
PROCEDURE: CT PEL WO CON INDICATIONS: Ongoing right hip pain TECHNIQUE: Noncontrast 3 mm axial sections acquired through the bony pelvis, with coronal and sagittal reformatting. COMPARISON: [facility], CR, XR HIP W PEL RT 2V, 07/27/2025, 11:57. FINDINGS: Image quality: Excellent. Bones: Pelvic ring is intact. No acute pelvic or hip fracture. No hip dislocation. Mild bilateral hip joint osteoarthritic changes are seen with superior joint space narrowing and subchondral sclerosis. No evidence of avascular necrosis of femoral head. No suspicious bony lesions. Mild degenerative endplate changes are noted in visualized lower lumbar spine. Soft tissues: There is no pelvic free fluid or free air. No abnormal bowel wall thickening or mesenteric fat stranding. No abscess collection. A bladder wall thickness is normal. Uterus and bilateral adnexa show no gross abnormalities. No soft tissue mass or drainable fluid collection is seen in pelvic soft tissue. Nonspecific mildly enlarged bilateral inguinal lymph nodes are seen measures up to 1.1 cm in size in left inguinal region. Prominent lymph nodes along left iliac chain is also noted measures up to 1 cm in size series 3, image 51. IMPRESSION: 1. Symmetric appearing mild bilateral hip joint osteoarthritis. No acute fracture or dislocation. No evidence of avascular necrosis of femoral head. No suspicious intraosseous lesions. 2. No pelvic free fluid or free air. No soft tissue mass or drainable fluid collection. Nonspecific mildly enlarged lymph nodes are seen in bilateral iliac region and along left iliac chain which may be reactive in nature. Dictated by: Edward Cevallos M.D. on 07/27/2025 at 16:13 Approved by: Edward Cevallos M.D. on 07/27/2025 at 16:16
[2025-07-27] MEDS: KETOROLAC 30 MG/ML VIAL IM (15:26)
--- NOTE | 2025-07-27 15:53 | PC.NURSE ---
Patient tearful, crying and feeling overwhelmed. Patient wanting to leave. Education given to patient on importance of staying for further evaluation and treatment and still wishes to leave. Provider Monico made aware. Monico goes to see patient. Monico OK to give food/water and to keep off monitors at patient request.
== END 2025-07-27 16:46 | disposition home or self-care (01) ==
PROVIDERS: Emergency Provider Emergency Medicine; PCP Internal Medicine
DX: S76.811A Strain of other specified muscles, fascia and tendons at thigh level, right thigh, initial encounter (principal); S70.01XA Contusion of right hip, initial encounter; W01.0XXA Fall on same level from slipping, tripping and stumbling without subsequent striking against object, initial encounter
CPT/HCPCS: 72192; 73502; 96372; 96374; 99284; J1171; J1885

== ENCOUNTER → 2025-08-27 08:33 | Outpatient (CLI) | payer OTHER, SELFPAY ==
[2025-08-27 09:43] LABS: Hemoglobin A1C% w Est Avg Glu 7.5 % (4.0-6.0)
[2025-08-27 09:47] LABS: Alanine Aminotransferase 113 IU/L (<35); Albumin 4.9 g/dL (3.5-5.0); Albumin Globulin Ratio 1.5 (1.0-2.8); Alkaline Phosphatase 76 U/L (38-126); Blood Urea Nitrogen 14 mg/dL (7-17); Calcium 9.7 mg/dL (8.4-10.2); Carbon Dioxide 24 mmol/L (22-32); Chloride 99 mmol/L (98-107); Estimated Glomerular Filt Rate > 60 mL/min (>60); Globulin 3.2 g/dL (1.7-4.1); Glucose 206 mg/dL (70-99); HEMOLYSIS < 15 (0-50); Potassium 4.5 mmol/L (3.4-5.1); Sodium 138 mmol/L (137-145); Total Protein 8.1 g/dL (6.3-8.2)
== END ==
PROVIDERS: PCP Internal Medicine; Referring Provider Internal Medicine; Visit Provider Internal Medicine
DX: E11.65 Type 2 diabetes mellitus with hyperglycemia (principal); I10 Essential (primary) hypertension; K76.0 Fatty (change of) liver, not elsewhere classified
CPT/HCPCS: 36415; 80053; 83036